=== PATIENT | male | born 1975 | race African-American/Black ===

== ENCOUNTER 2017-01-02 15:15 | Emergency (ER) | payer OTHER ==
[2017-01-02] MEDS ORDERED: Ketorolac Tromethamine 30 MG/ML VIAL ONE (17:23)
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
== END 2017-01-02 18:18 | disposition home or self-care (01) ==
LOC: ERS 15:15
DX: T24.231A Burn of second degree of right lower leg, initial encounter (principal); S80.11XA Contusion of right lower leg, initial encounter; I10 Essential (primary) hypertension; E11.9 Type 2 diabetes mellitus without complications; I25.2 Old myocardial infarction; E78.5 Hyperlipidemia, unspecified; F41.9 Anxiety disorder, unspecified; Z79.82 Long term (current) use of aspirin; Z79.84 Long term (current) use of oral hypoglycemic drugs; Z79.899 Other long term (current) drug therapy; V09.9XXA Pedestrian injured in unspecified transport accident, initial encounter
CPT/HCPCS: 96372; J1885

== ENCOUNTER 2017-01-04 11:55 | Emergency (ER) | payer OTHER ==
[2017-01-04] MEDS ORDERED: Ketorolac Tromethamine 60 MG/2 ML VIAL ONE (13:27)
--- NOTE | 2017-01-04 13:50 | CT ---
CT CERVICAL SPINE WITHOUT CONTRAST: Date: 01/04/17 HISTORY: patient fell and now has post-traumatic pain. COMPARISON: None. TECHNIQUE: Noncontrast cervical spine CT is performed in the axial plane. Reformatted images are submitted for i nterpretation. FINDINGS: Lateral masses of C1 and C2 articulate appropriately. Odontoid process is intact. Appropriate articul ation of the facets. Straightening of normal cervical lordosis may be due to patient positioning, muscle spasm, or cervica l collar. There is no prevertebral soft tissue swelling. No epidural hematoma. There is some stranding of the subcutaneous fat, nonspecific. If there is concern for ligamentous inj ury, consider MRI. Central spinal canal and neural foramina are patent. Evaluation is limited by technique. Upper mediastinum and lung apices are unremarkable. Cervical spine vertebral body height is maintained. No fracture. IMPRESSION: 1. No cervical spine fracture. 2. Soft tissue edema. If there is concern for ligamentous injury, consider MRI. POS: [facility]
--- NOTE | 2017-01-04 14:12 | ULT ---
EXAM: RIGHT LOWER EXTREMITY VENOUS ULTRASOUND WITH DOPPLER: HISTORY: Right leg pain. COMPARISON: None. TECHNIQUE: Esparza scale, color flow, Doppler imaging, and spectral waveform analysis performed of the right lower extremity venous system. FINDINGS: There is compressibility, presence of flow, and augmentation of the common femoral vein, femoral vein , and popliteal vein. There is flow in the greater saphenous vein, profunda vein, and posterior tibi al vein. IMPRESSION: No evidence of thrombus in the right lower extremity venous system. POS: [facility]
== END 2017-01-04 14:35 | disposition home or self-care (01) ==
LOC: ERS 11:55
DX: S13.4XXA Sprain of ligaments of cervical spine, initial encounter (principal); S80.11XA Contusion of right lower leg, initial encounter; T24.201D Burn of second degree of unspecified site of right lower limb, except ankle and foot, subsequent encounter; T31.0 Burns involving less than 10% of body surface; E11.9 Type 2 diabetes mellitus without complications; E78.5 Hyperlipidemia, unspecified; I10 Essential (primary) hypertension; F41.9 Anxiety disorder, unspecified; R56.9 Unspecified convulsions; I25.2 Old myocardial infarction; Z79.899 Other long term (current) drug therapy; Z79.84 Long term (current) use of oral hypoglycemic drugs; Z79.82 Long term (current) use of aspirin; V89.2XXD Person injured in unspecified motor-vehicle accident, traffic, subsequent encounter
CPT/HCPCS: 72125; 96372; J1885

== ENCOUNTER 2017-03-18 13:00 | Emergency (ER) | payer OTHER ==
[2017-03-18] MEDS ORDERED: Lorazepam 2 MG/ML VIAL ONE (13:08)
--- NOTE | 2017-03-18 14:10 | CT ---
CT BRAIN WITHOUT CONTRAST: HISTORY: Seizures. Emergency exam. Altered mental status. COMPARISON: CT brain 08/09/16. FINDINGS: No acute territorial infarct or hemorrhage. No midline shift or mass effect. Ventricular size and e xtraaxial CSF spaces are normal. Calvarium is intact. Paranasal sinuses and the mastoids are clear. Soft tissues are unremarkable. IMPRESSION: No acute intracranial abnormality. No significant change. POS: [facility]
== END 2017-03-18 15:05 | disposition home or self-care (01) ==
LOC: ERS 13:00
DX: R56.9 Unspecified convulsions (principal); I25.2 Old myocardial infarction; E11.9 Type 2 diabetes mellitus without complications; E78.5 Hyperlipidemia, unspecified; I10 Essential (primary) hypertension; F41.9 Anxiety disorder, unspecified
CPT/HCPCS: 70450; J2060

== ENCOUNTER 2017-05-07 02:19 | Emergency (ER) | payer OTHER ==
[2017-05-07] MEDS ORDERED: Ketorolac Tromethamine 30 MG/ML VIAL ONE (02:50)
[2017-05-07 03:28] LABS: #Basophils 0.1 thou/uL (0.0-0.2); #Eosinphils 0.2 thou/uL (0.0-0.7); #Lymphocytes 3.1 thou/uL (1.20-3.40); #Monocytes 0.9 thou/uL (0.11-0.59); #Neutrophils 4.3 thou/uL (1.40-6.50); %Eosinophils 2.3 % (0.0-10.0); %Monocytes 10.9 % (0.0-10.0); %Neutrophils 49.8 % (42.0-75.0); Hemoglobin 17.1 g/dL (14.0-18.0); Mean Corpuscular HGB CONC 32.5 g/dL (32.0-36.0); Mean Corpuscular Hemoglobin 28.6 pg (27.0-31.0); Mean Platelet Volume 7.1 fL (7.4-10.4); Platelet Count 271 thou/uL (130-400); RBC Distribution Width 12.8 % (11.5-14.5); Red Blood Cell (RBC) Count 5.96 mill/uL (4.70-6.10); White Blood Cell (WBC) Count 8.6 thou/uL (4.8-10.8)
[2017-05-07 03:57] LABS: ALT (SGPT) 17 U/L (8-55); AST (SGOT) 29 U/L (5-34); Albumin 4.8 g/dL (3.5-5.0); Alkaline Phosphatase 93 U/L (40-150); Anion Gap 13 mmol/L (10-20); BUN (Urea Nitrogen) 16 mg/dL (8.9-20.6); Bilirubin, Total 0.7 mg/dL (0.2-1.2); Calc. Creatinine Clearance 0 mL/min (70-130); Calcium 10.2 mg/dL (7.8-10.44); Carbon Dioxide 25 mmol/L (22-29); Chloride 102 mmol/L (98-107); Estimated GFR-MDRD 49; Globulin 4.1 g/dL (2.4-3.5); Glucose 97 mg/dL (70-105); Potassium 4.3 mmol/L (3.5-5.1); Protein, Total 8.9 g/dL (6.0-8.3); Sodium 136 mmol/L (136-145)
[2017-05-07] MEDS ORDERED: SODIUM CHLORIDE 0.9% IVP SCH ×2 (04:00)
[2017-05-07] MEDS ORDERED: LIDOCAINE IVP SCH ×2 (04:00)
[2017-05-07 05:39] LABS: Bilirubin Negative (Negative); Blood, Urine Large (Negative); Clarity CLOUDY (Clear); Glucose, Urine (Dipstick) Negative (Negative); Leukocyte Trace (Negative); Nitrite Negative (Negative); Protein, Urine (Dipstick) 30 mg/dL (Neg-Trace); Specific Gravity, Urine 1.027 (1.002-1.036)
[2017-05-07 05:42] LABS: Bacteria/HPF None Seen HPF (None Seen); Hyaline Casts/LPF 0-3 HYALINE CAST LPF (0-3 Hyaline); Pathc Cast-AUWi Flag 0.65 (0-2.49); RBC/HPF GREATER THAN 50-TNTC HPF (0-3); Squamous Epithelial 0-3 HPF (0-3)
--- NOTE | 2017-05-07 08:28 | CT ---
PRELIMINARY REPORT/[facility]/EMERGENCY AFTER HOURS PROCEDURE: EXAM: CT Abdomen and Pelvis Without Intravenous Contrast EXAM DATE/TIME: Exam ordered 05/07/2017 3:26 AM CLINICAL HISTORY: 41 years old, male; Pain; Abdominal pain; Acute; Patient HX: Urgency earlier tonight, believes passed a kidney stone, then left CVA pain. No cp/sob. No abd pain. No trauma. No rashes. No fevers TECHNIQUE: Axial computed tomography images of the abdomen and pelvis without intravenous contrast. Coronal reformatted images were created and reviewed. COMPARISON: No relevant prior studies available. FINDINGS: Lung bases: Unremarkable. No mass. No consolidation. ABDOMEN: Liver: Unremarkable. Gallbladder and bile ducts: Unremarkable. No calcified stones. No ductal dilation. Pancreas: Unremarkable. No ductal dilation. Spleen: Unremarkable. No splenomegaly. Adrenals: Unremarkable. No mass. Kidneys and ureters: 3 mm obstructing stone in the distal left ureter causing mild obstructive uropat hy. Nonobstructive nephrolithiasis right kidney. Small nonobstructing right renal stone. Stomach and bowel: Unremarkable. No obstruction. No mucosal thickening. Appendix: Normal appendix. PELVIS: Bladder: Unremarkable. No stones. Reproductive: Unremarkable as visualized. ABDOMEN and PELVIS: Intraperitoneal space: Unremarkable. No free air. No significant fluid collection. Bones/joints: No acute fracture. No dislocation. Soft tissues: Unremarkable. Vasculature: Unremarkable. No abdominal aortic aneurysm. Lymph nodes: Unremarkable. No enlarged lymph nodes. IMPRESSION: 3 mm obstructing stone in the distal left ureter causing mild obstructive uropathy. Thank you for allowing us to participate in the care of your patient. Dictated and Authenticated by: Jason Rios MD 05/07/2017 4:29 AM Central Time ([place] & [place]) FINAL REPORT CT ABDOMEN AND PELVIS WITHOUT CONTRAST: Date: 05/07/17 FINDINGS/IMPRESSION: I agree with the preliminary report given by Dr. Jason Rios of [facility]. POS: [facility]
== END 2017-05-07 06:28 | disposition home or self-care (01) ==
LOC: ERS 02:19
DX: N20.2 Calculus of kidney with calculus of ureter (principal); I25.2 Old myocardial infarction; E11.9 Type 2 diabetes mellitus without complications; E78.5 Hyperlipidemia, unspecified; I10 Essential (primary) hypertension; F41.9 Anxiety disorder, unspecified
CPT/HCPCS: 74176; 80053; 81001; 85025; 87077; 87086; 96361; 96365; 96375; J1885; J2001; J7050

== ENCOUNTER 2017-05-25 16:29 | Emergency (ER) | payer OTHER ==
[2017-05-25 17:30] LABS: #Basophils 0.1 thou/uL (0.0-0.2); #Lymphocytes 1.8 thou/uL (1.20-3.40); #Monocytes 1.5 thou/uL (0.11-0.59); #Neutrophils 7.2 thou/uL (1.40-6.50); %Basophils 0.7 % (0.0-1.0); %Eosinophils 0.4 % (0.0-10.0); %Lymphocytes 17.3 % (21.0-51.0); %Monocytes 13.9 % (0.0-10.0); %Neutrophils 67.6 % (42.0-75.0); Hemoglobin 15.7 g/dL (14.0-18.0); Mean Corpuscular HGB CONC 32.6 g/dL (32.0-36.0); Mean Corpuscular Hemoglobin 28.5 pg (27.0-31.0); Mean Corpuscular Volume 87.4 fl (80.0-94.0); Mean Platelet Volume 7.2 fL (7.4-10.4); Platelet Count 234 thou/uL (130-400); RBC Distribution Width 12.8 % (11.5-14.5); Red Blood Cell (RBC) Count 5.52 mill/uL (4.70-6.10); White Blood Cell (WBC) Count 10.7 thou/uL (4.8-10.8)
[2017-05-25 17:57] LABS: ALT (SGPT) 20 U/L (8-55); AST (SGOT) 30 U/L (5-34); Albumin 4.2 g/dL (3.5-5.0); Alkaline Phosphatase 86 U/L (40-150); Anion Gap 13 mmol/L (10-20); BUN (Urea Nitrogen) 16 mg/dL (8.9-20.6); Bilirubin, Total 0.8 mg/dL (0.2-1.2); CK (CPK) 835 U/L (30-200); Calc. Creatinine Clearance 0 mL/min (70-130); Calcium 9.2 mg/dL (7.8-10.44); Carbon Dioxide 24 mmol/L (22-29); Chloride 102 mmol/L (98-107); Estimated GFR-MDRD 60; Globulin 3.4 g/dL (2.4-3.5); Glucose 94 mg/dL (70-105); Lipase 83 U/L (8-78); Potassium 3.8 mmol/L (3.5-5.1); Protein, Total 7.6 g/dL (6.0-8.3); Sodium 135 mmol/L (136-145)
[2017-05-25 18:00] LABS: CKMB 1.4 ng/mL (0-6.6); Troponin I 0.016 ng/mL (< 0.028)
[2017-05-25] MEDS ORDERED: Ketorolac Tromethamine 60 MG/2 ML VIAL ONE (18:31)
--- NOTE | 2017-05-25 19:10 | RAD ---
AP VIEW OF THE CHEST: 05/25/17 INDICATION: Chest pain. COMPARISON: 04/24/14. IMPRESSION: Low lung volumes. No acute abnormality. COMMENTS: No consolidation, pleural effusion or pneumothorax is evident. Heart and pulmonary vasculature appear within normal limits. No acute osseous abnormality is evident. POS: [facility]
[2017-05-25] MEDS ORDERED: Nitroglycerin 0.4 MG TAB (25 Tab Bottle) ONE (19:23)
[2017-05-25 20:51] LABS: Troponin I 0.011 ng/mL (< 0.028)
--- NOTE | 2017-07-31 16:22 | EKG ---
Test Reason : Blood Pressure : / mmHG Vent. Rate : 100 BPM Atrial Rate : 100 BPM P-R Int : 142 ms QRS Dur : 082 ms QT Int : 362 ms P-R-T Axes : 044 -02 021 degrees QTc Int : 466 ms Normal sinus rhythm Inferior infarct , age undetermined Abnormal ECG Confirmed by DAGOBERTO LEDEZMA M.D. ([id number]), design editor BROWN FAN ([id number]) on 07/31/2017 4:22:28 PM Referred By: Confirmed By:DAGOBERTO LEDEZMA M.D.
--- NOTE | 2017-07-31 17:11 | EKG ---
Test Reason : Blood Pressure : / mmHG Vent. Rate : 078 BPM Atrial Rate : 078 BPM P-R Int : 158 ms QRS Dur : 088 ms QT Int : 390 ms P-R-T Axes : 049 023 023 degrees QTc Int : 444 ms Normal sinus rhythm No STEMI Normal ECG No changes Confirmed by DARIEN King, DAGOBERTO ([id number]), map editor BROWN FAN ([id number]) on 07/31/2017 5:11:34 PM Referred By: DARIEN Confirmed By:DAGOBERTO LEDEZMA M.D.
== END 2017-05-25 21:52 | disposition left against medical advice (07) ==
LOC: ERS 16:29
DX: R07.89 Other chest pain (principal); M54.2 Cervicalgia; H92.01 Otalgia, right ear; I25.2 Old myocardial infarction; R56.9 Unspecified convulsions; E11.9 Type 2 diabetes mellitus without complications; E78.5 Hyperlipidemia, unspecified; I10 Essential (primary) hypertension; F41.9 Anxiety disorder, unspecified; V03.09XA Pedestrian with other conveyance injured in collision with car, pick-up truck or van in nontraffic accident, initial encounter; Y93.02 Activity, running
CPT/HCPCS: 36415; 71045; 80053; 82553; 83690; 84484; 85025; 93005; J1885

== ENCOUNTER 2017-05-26 08:22 | Emergency (ER) | payer OTHER ==
[2017-05-26] MEDS ORDERED: Ketorolac Tromethamine 30 MG/ML VIAL ONE (09:07)
[2017-05-26 09:11] LABS: #Basophils 0.1 thou/uL (0.0-0.2); #Eosinphils 0.1 thou/uL (0.0-0.7); #Lymphocytes 1.6 thou/uL (1.20-3.40); #Monocytes 1.4 thou/uL (0.11-0.59); #Neutrophils 7.6 thou/uL (1.40-6.50); %Basophils 0.7 % (0.0-1.0); %Eosinophils 0.6 % (0.0-10.0); %Lymphocytes 14.8 % (21.0-51.0); %Monocytes 13.4 % (0.0-10.0); %Neutrophils 70.5 % (42.0-75.0); Hemoglobin 14.8 g/dL (14.0-18.0); Mean Corpuscular HGB CONC 31.2 g/dL (32.0-36.0); Mean Corpuscular Hemoglobin 27.2 pg (27.0-31.0); Mean Corpuscular Volume 87.1 fl (80.0-94.0); Mean Platelet Volume 7.5 fL (7.4-10.4); Platelet Count 230 thou/uL (130-400); RBC Distribution Width 12.7 % (11.5-14.5); Red Blood Cell (RBC) Count 5.45 mill/uL (4.70-6.10); White Blood Cell (WBC) Count 10.8 thou/uL (4.8-10.8)
[2017-05-26 09:31] LABS: ALT (SGPT) 18 U/L (8-55); AST (SGOT) 22 U/L (5-34); Albumin 3.8 g/dL (3.5-5.0); Alkaline Phosphatase 76 U/L (40-150); Anion Gap 10 mmol/L (10-20); BUN (Urea Nitrogen) 16 mg/dL (8.9-20.6); Bilirubin, Total 0.4 mg/dL (0.2-1.2); Calc. Creatinine Clearance 0 mL/min (70-130); Calcium 8.7 mg/dL (7.8-10.44); Carbon Dioxide 25 mmol/L (22-29); Chloride 105 mmol/L (98-107); Estimated GFR-MDRD 63; Glucose 129 mg/dL (70-105); Lipase 27 U/L (8-78); Potassium 3.8 mmol/L (3.5-5.1); Protein, Total 6.8 g/dL (6.0-8.3); Sodium 136 mmol/L (136-145)
[2017-05-26 09:35] LABS: Troponin I 0.021 ng/mL (< 0.028)
[2017-05-26] MEDS ORDERED: ISOVUE-370 76%-LOCM 1 ML ONE (10:45)
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
== END 2017-05-26 11:20 | disposition home or self-care (01) ==
LOC: ERS 08:22
DX: R10.12 Left upper quadrant pain (principal); E78.5 Hyperlipidemia, unspecified; G40.909 Epilepsy, unspecified, not intractable, without status epilepticus; E11.9 Type 2 diabetes mellitus without complications; I10 Essential (primary) hypertension; F41.9 Anxiety disorder, unspecified; Z79.899 Other long term (current) drug therapy; Z79.82 Long term (current) use of aspirin; V49.9XXA Car occupant (driver) (passenger) injured in unspecified traffic accident, initial encounter
CPT/HCPCS: 36415; 71045; 71260; 74177; 80053; 82553; 83690; 84484; 85025; 93005; 96360; 96361; 96372; 96374; J1885

== ENCOUNTER 2017-07-13 17:42 | Observation (INO) | payer OTHER ==
[2017-07-13] MEDS ORDERED: Nitroglycerin 0.4 MG TAB (25 Tab Bottle) ONE (17:53)
--- NOTE | 2017-07-13 19:09 | RAD ---
CHEST ONE VIEW: 07/13/17 COMPARISON: 05/25/17 HISTORY: Chest pain. FINDINGS: Enlarged cardiac silhouette. The pulmonary vessels and hilum are normal. Costophrenic angles are jenna r. No consolidation or mass. No pneumothorax or osseous abnormalities. Chronic changes in the left lo wer lobe are noted. IMPRESSION: No acute cardiopulmonary process. POS: [facility]
[2017-07-13 19:18] LABS: #Basophils 0.1 thou/uL (0.0-0.2); #Eosinphils 0.5 thou/uL (0.0-0.7); #Lymphocytes 3.5 thou/uL (1.20-3.40); #Neutrophils 3.2 thou/uL (1.40-6.50); %Basophils 0.7 % (0.0-1.0); %Lymphocytes 42.3 % (21.0-51.0); %Monocytes 11.6 % (0.0-10.0); %Neutrophils 39.4 % (42.0-75.0); Hemoglobin 14.6 g/dL (14.0-18.0); Mean Corpuscular HGB CONC 31.8 g/dL (32.0-36.0); Mean Corpuscular Hemoglobin 27.6 pg (27.0-31.0); Mean Corpuscular Volume 86.8 fl (80.0-94.0); Mean Platelet Volume 7.2 fL (7.4-10.4); Platelet Count 204 thou/uL (130-400); White Blood Cell (WBC) Count 8.2 thou/uL (4.8-10.8)
[2017-07-13 19:43] LABS: Anion Gap 13 mmol/L (10-20); BUN (Urea Nitrogen) 18 mg/dL (8.9-20.6); Calc. Creatinine Clearance 0 mL/min (70-130); Calcium 9.2 mg/dL (7.8-10.44); Carbon Dioxide 21 mmol/L (22-29); Chloride 104 mmol/L (98-107); Estimated GFR-MDRD 53; Glucose 101 mg/dL (70-105); Potassium 3.9 mmol/L (3.5-5.1); Sodium 134 mmol/L (136-145)
[2017-07-13 19:49] LABS: CKMB 2.1 ng/mL (0-6.6); Troponin I Less than 0.010 ng/mL (< 0.028)
[2017-07-13] MEDS ORDERED: Ketorolac Tromethamine 30 MG/ML VIAL ONE (20:34)
[2017-07-13] MEDS ORDERED: Ondansetron ODT 8 MG TAB ONE (20:46)
[2017-07-13] MEDS ORDERED: Promethazine HCl 25 MG/ML VIAL ONE (20:48)
[2017-07-13] MEDS ORDERED: Ondansetron ODT 4 MG TAB ONE (21:16)
[2017-07-13] MEDS ORDERED: hydrALAZINE 20 MG/ML VIAL ONE (21:21)
--- NOTE | 2017-07-13 21:52 | PDOC.FPRHP ---
- History of Present Illness Chief Complaint: chest pain History of Present Illness: 41 yo M with PMH including UT in 2014 with balloon angioplasty, drug abuse, CKD stage 2, HTN, DM2, HLD, and pseudoseizures comes in with chest pain which started this afternoon. The pain is on the L side of the chest and does not radiate. He is resting comfortable when examiner enters the room. States the pain is currently 3/10 but gets up to 8/10 and lasts for a few minutes sporadically. The pain started today while he was riding with a friend to "get him some ribs." Nothing seems to make the pain better or worse. He states this pain feels similar to the pain he had before getting a heart cath a few years back. Patient states it has been a few years since he used any illicit drugs. ED Course: EKG shows inverted t-wave in V3, no ST changes, no q waves Trop negative - Allergies/Adverse Reactions Allergies Allergy/AdvReac Type Severity Reaction Status Date / Time tramadol Allergy Verified 07/13/17 22:59 - Home Medications Medication Instructions Recorded Confirmed Type Aspirin [Ecotrin Low Strength] 81 mg PO DAILY 05/03/15 07/13/17 History Atorvastatin Calcium 40 mg PO HS 05/03/15 07/13/17 History Carvedilol 3.125 mg PO BID 05/03/15 07/13/17 History Topiramate [Topamax] 100 mg PO BID 05/03/15 07/13/17 History - History PMHx:UT with balloon angioplasty 2014, CKD stage 2, HTN, DM2, HLD, pseudoseizures, Cocaine abuse PSHx: cath 2014, rt knee surgery FHx:father UT in 60s Social:patient denies using drugs in the last year, no recent alcohol use, non- smoker - Review of Systems General: reports: fatigue. denies: fever/chills Eyes: denies: eye pain ENT: denies: nasal congestion, rhinorrhea Respiratory: denies: cough, shortness of breath Cardiovascular: reports: chest pain. denies: palpitation, orthopnea Gastrointestinal: denies: nausea, vomiting, diarrhea Genitourinary: denies: incontinence, dysuria Skin: denies: rashes, itching Musculoskeletal: denies: pain, stiffness Neurological: denies: numbness, weakness Psychological: reports: anxiety. denies: depression - Vital signs BP: 123/83 HR: 75 RR: 18 Tmax: 98.2 Pox: 95 on RA Wt: 95.1kg - Physical Exam Constitutional: NAD, awake, alert and oriented HEENT: normocephalic and atraumatic, PERRLA, EOMI Neck: supple Heart: RRR, normal S1/S2, pulses present, other (chest pain reproducible on palpation) Lungs: CTAB, no respiratory distress, good air movement Abdomen: soft, non-tender, bowel sounds present Musculoskeletal: normal structure, ROM grossly normal Neurological: no focal deficit, CN II-XII intact Skin: no rash/lesions, capillary refill <2 seconds -Psychiatric: Patient states he is anxious during the exam FMR H&P: Results - Labs Result Diagrams: 07/14/17 04:17 07/14/17 04:17 Lab results: WBC 8.2 thou/uL (4.8-10.8) 07/13/17 19:07 Hgb 14.6 g/dL (14.0-18.0) 07/13/17 19:07 Hct 46.0 % (42.0-52.0) 07/13/17 19:07 MCV 86.8 fl (80.0-94.0) 07/13/17 19:07 Plt Count 204 thou/uL (130-400) 07/13/17 19:07 Neutrophils % 39.4 % (42.0-75.0) L 07/13/17 19:07 Sodium 134 mmol/L (136-145) L 07/13/17 19:07 Potassium 3.9 mmol/L (3.5-5.1) 07/13/17 19:07 Chloride 104 mmol/L (98-107) 07/13/17 19:07 Carbon Dioxide 21 mmol/L (22-29) L 07/13/17 19:07 BUN 18 mg/dL (8.9-20.6) 07/13/17 19:07 Creatinine 1.72 mg/dL (0.6-1.3) H 07/13/17 19:07 Glucose 101 mg/dL (70-105) 07/13/17 19:07 Calcium 9.2 mg/dL (7.8-10.44) 07/13/17 19:07 CK-MB (CK-2) 2.1 ng/mL (0-6.6) 07/13/17 19:07 FMR H&P: A/P - Problem List (1) CAD (coronary artery disease) Current Visit: No Status: Acute Code(s): I25.10 - ATHSCL HEART DISEASE OF [place] CORONARY ARTERY W/O ANG PCTRS (2) Chest pain Current Visit: No Status: Acute Code(s): R07.9 - CHEST PAIN, UNSPECIFIED (3) Cocaine abuse Current Visit: No Status: Acute Code(s): F14.10 - COCAINE ABUSE, UNCOMPLICATED (4) Hyperlipemia Current Visit: No Status: Acute Code(s): E78.5 - HYPERLIPIDEMIA, UNSPECIFIED (5) Diabetes mellitus type 2 in nonobese Current Visit: No Status: Chronic Code(s): E11.9 - TYPE 2 DIABETES MELLITUS WITHOUT COMPLICATIONS (6) Dyslipidemia Current Visit: No Status: Chronic Code(s): E78.5 - HYPERLIPIDEMIA, UNSPECIFIED (7) [id number] kidney injury Current Visit: No Status: Resolved Code(s): N17.9 - ACUTE KIDNEY FAILURE, UNSPECIFIED; N18.9 - CHRONIC KIDNEY DISEASE, UNSPECIFIED Qualifiers: Acute renal failure type: unspecified Chronic kidney disease stage: stage 2 (mild) Qualified Code(s): N17.9 - Acute kidney failure, unspecified; N18.2 - Chronic kidney disease, stage 2 (mild); N18.2 - Chronic kidney disease, stage 2 (mild) - Plan # Atypical Chest pain - Hx of cath in 2014 w/ balloon angioplasty - EKG unremarkable - trop neg, trend - UDS + for meth, cocaine, cannaboids - tele monitor overnight - ASA, statin # Substance Abuse - Has note from hospital admin indicating patient is not to receive narcotics - see UDS # CKD 2 - Cr 1.74, was 1.34 in August 2016 - bump likely from substance abuse - monitor # HTN - home meds # DM2 - home meds # HLD - home meds Dispo: likely home tomorrow pending trops and resolution of CP FMR H&P: Upper Level - Pertinent history 41 yo M with PMH significant for polysubstance abuse, CAD, HTN, HLD, DM2 presents with chest pain. Pain began earlier this evening, are central, substernal radiating down left arm. Has some SOB, N/V, and diaphoresis with these episodes. Denies any drug use recently. Had inferolateral UT in 2016, and since then has had multiple ER visits for chest pain, almost never resulting in admission. - Pertinent findings PE: T: P: BP: RR: % Gen: [place] male HEENT: PERRL, EOMI, MMM, no lymphadenopathy or thyromegaly CV: RRR no murmurs, distal pulses intact Pulm: CTAB, no wheezes or rhonchi Abd: soft, NT/ND, BS present, no masses or distention Ext: no cyanosis or edema MSK: MENENDEZ well, no joint or muscle pain or swelling Neuro: CN 2-12 intact, normal sensation Skin: no rashes or lesions Psych: A&O x3, appropriate in conversation - Plan Date/Time: 07/13/17 2152 41 yo M here with CP. 1) Atypical chest pain: Observe on tele. Continue to trend trops, check Mg, Phos, TSH. Repeat EKG overnight. Suspect this is likely due to drug use, will not order stress at this time, though if patient continues to have concerning symptoms will reconsider and risk stratify. 2) Polysubstance abuse: trauma counsellor cessation 3) HTN: continue home medications 4) DM2: continue home medications 5) HLD: continue statin I, [Benigno Wiggins], have evaluated this patient and agree with findings/plan as outlined by programming internship resident. Pertinent changes/additions are listed here. Attending Addendum - Attending Addendum Date/Time: 07/13/17 2200. I personally evaluated the patient and discussed the management with Dr. Wagner/ Feliciano. I agree with the History, Examination, Assessment and Plan documented above with any addition or exceptions noted below. Patient here with 1 day of chest pain that occurred while sitting. Reports he is unsure how long the pain lasted but that it has now resolved. Patient's drug screen is positive for amphetamines, cocaine, and marijuana, though he denies recent abuse. His troponins are negative, and no major EKG indicators of ischemia. Will observe overnight for rule out of his chest pain. Will need counselling on cessation. Consider stress testing if his pain recurs, though his drug use can definitely both stress his heart and result in his pain complaints.
[2017-07-13 22:41] LABS: Cocaine Metabolite Screen Detected (NotDetected); Medtox Reader # READER 1; Phencyclidine (PCP) Not Detected (NotDetected); THC/Cannabinoid Screen Detected (NotDetected)
[2017-07-13 22:42] LABS: Amphetamine Detected (NotDetected); Barbiturates Screen Not Detected (NotDetected); Benzodiazepine Screen Not Detected (NotDetected); Medtox Control Line Valid? VALID (VALID); Methadone Not Detected (NotDetected); Methamphetamine Not Detected (NotDetected); Opiate Screen Not Detected (NotDetected); Oxycodone Screen Not Detected (NotDetected); Tricyclic Screen Not Detected (NotDetected)
[2017-07-13] MEDS ORDERED: Nitroglycerin 0.4 MG TAB (25 Tab Bottle) PO PRN (22:48)
[2017-07-13] MEDS ORDERED: Enoxaparin Sodium 40 MG/0.4 ML SYRINGE SC SCH (22:48)
[2017-07-13] MEDS ORDERED: Ondansetron HCl/PF 4 MG/2 ML Vial IVP PRN (22:48)
[2017-07-13 22:59] LABS: Troponin I Less than 0.010 ng/mL (< 0.028)
[2017-07-14 01:54] LABS: Troponin I Less than 0.010 ng/mL (< 0.028)
[2017-07-14 05:27] LABS: Eosinophils 6 % (0-10); Hemoglobin 14.5 g/dL (14.0-18.0); Lymphocytes 56 % (21-51); MDiff Complete? YES; Mean Corpuscular HGB CONC 31.8 g/dL (32.0-36.0); Mean Corpuscular Hemoglobin 27.3 pg (27.0-31.0); Mean Corpuscular Volume 85.8 fl (80.0-94.0); Mean Platelet Volume 8.5 fL (7.4-10.4); Monocytes 8 % (0-10); Neutrophil 29 % (42-75); PLT Morphology Comment Appears Adequate; Platelet Count 233 thou/uL (130-400); White Blood Cell (WBC) Count 6.4 thou/uL (4.8-10.8)
[2017-07-14 05:28] LABS: Anion Gap 12 mmol/L (10-20); BUN (Urea Nitrogen) 18 mg/dL (8.9-20.6); Calc. Creatinine Clearance 89 mL/min (70-130); Calcium 9.3 mg/dL (7.8-10.44); Carbon Dioxide 25 mmol/L (22-29); Cardiac Risk 4.3 (Less than 4.5); Chloride 104 mmol/L (98-107); Cholesterol 149 mg/dl (< 200 Desired); Estimated GFR-MDRD 65; Glucose 99 mg/dL (70-105); HDL Cholesterol 35 mg/dL (>60 Neg Risk); LDL Cholesterol, Calculated 95 mg/dL; Potassium 3.6 mmol/L (3.5-5.1); Sodium 137 mmol/L (136-145); Triglycerides 97 mg/dL (Less than 150)
[2017-07-14] MEDS: Ondansetron ODT 4 MG TAB PO PRN (06:47)
[2017-07-14] MEDS ORDERED: Aspirin 325 MG TAB PO SCH (09:00)
--- NOTE | 2017-07-14 12:09 | PDOC.FM ---
- Subjective Subjective: No complaint of chest pain this am. - Objective MAR Reviewed: Yes Vital Signs & Weight: Vital Signs (12 hours) Temp Pulse Resp BP BP Pulse Ox 07/14/17 12:04 142/99 H 07/14/17 10:57 98.0 F 72 12 153/105 H 98 07/14/17 07:45 98.2 F 70 18 07/14/17 07:20 98.4 F 73 12 144/95 H 97 07/14/17 04:13 70 18 129/83 Weight Weight 95.118 kg Result Diagrams: 07/14/17 04:17 07/14/17 04:17 <Winifred Juan - Last Filed: 07/14/17 12:11> - Objective Vital Signs & Weight: Vital Signs (12 hours) Temp Pulse Resp BP BP Pulse Ox 07/14/17 19:30 97.9 F 07/14/17 16:03 74 14 142/91 H 95 07/14/17 12:04 142/99 H 07/14/17 10:57 98.0 F 72 12 153/105 H 98 Weight Weight 95.118 kg Result Diagrams: 07/14/17 04:17 07/14/17 04:17 <Edelmira Acevedo - Last Filed: 07/14/17 20:48> Phys Exam - Physical Examination Constitutional: NAD HEENT: PERRLA, moist MMs Neck: no nodes, no JVD Respiratory: no wheezing, no rales, no rhonchi, clear to auscultation bilateral Cardiovascular: RRR, no significant murmur Gastrointestinal: soft, non-tender, no distention Musculoskeletal: no edema, pulses present Neurological: non-focal Psychiatric: normal affect, A&O x 3 Skin: no rash, cap refill <2 seconds <Winifred Juan - Last Filed: 07/14/17 12:11> Dx/Plan (1) Methamphetamine abuse Code(s): F15.10 - OTHER STIMULANT ABUSE, UNCOMPLICATED Status: Acute (2) Cannabis abuse Code(s): F12.10 - CANNABIS ABUSE, UNCOMPLICATED Status: Acute (3) Chest pain Code(s): R07.9 - CHEST PAIN, UNSPECIFIED Status: Acute (4) Cocaine abuse Code(s): F14.10 - COCAINE ABUSE, UNCOMPLICATED Status: Acute (5) Hyperlipemia Code(s): E78.5 - HYPERLIPIDEMIA, UNSPECIFIED Status: Acute (6) Diabetes mellitus type 2 in nonobese Code(s): E11.9 - TYPE 2 DIABETES MELLITUS WITHOUT COMPLICATIONS Status: Chronic (7) Hypertension Code(s): I10 - ESSENTIAL (PRIMARY) HYPERTENSION Status: Chronic QualifierTitle: Hypertension type: essential hypertension Qualified Code( s): I10 - Essential (primary) hypertension - Plan Plan: # Atypical Chest pain - Hx of cath in 2014 w/ balloon angioplasty - EKG with inverted t waves - trop neg X 3 - UDS + for meth, cocaine, cannaboids - tele monitor overnight - stress today - ASA, statin # Substance Abuse - Has note from hospital admin indicating patient is not to receive narcotics - see UDS # CKD 2 - Cr 1.74, was 1.34 in August 2016 - bump likely from substance abuse - monitor # HTN - continue carvedilol after stress test # DM2 - hba1c - sliding scale insulin # HLD - atorvastatin 40mg daily Dispo: likely home today pending stress <Winifred Juan - Last Filed: 07/14/17 12:11> Attending Addendum - Attending Addendum Date/Time: 07/14/172047 I personally evaluated the patient and discussed the management with Dr. Juan. I agree with the History, Examination, Assessment and Plan documented above with any addition or exceptions noted below. Pt somnolent this morning. He will go for stress test. Hx drug abuse. If negative pt will likely d/c home. Further management pending stress results. <Edelmira Acevedo - Last Filed: 07/14/17 20:48>
[2017-07-14] MEDS ORDERED: HumaLOG 300 UNITS/3 ML VIAL SC PRN (12:12)
[2017-07-14] MEDS ORDERED: Dextrose 50% Abboject 50 ML SYRINGE SLOW IVP PRN (12:12)
[2017-07-14] MEDS ORDERED: Dextrose 5% in Water 1,000 ML IV PRN (12:12)
[2017-07-14 12:54] LABS: Hemoglobin A1c 6.2 % (4.0-6.0)
[2017-07-14] MEDS: Topiramate 100 MG TAB PO SCH (20:02)
[2017-07-14] MEDS: Carvedilol 3.125 MG TAB PO SCH (20:02)
[2017-07-14] MEDS: Acetaminophen 325 MG TAB PO PRN (20:02)
[2017-07-14] MEDS ORDERED: Atorvastatin Calcium 40 MG TAB PO SCH (21:00)
[2017-07-15] MEDS ORDERED: Docusate 100 MG CAP PO SCH ×2 (01:00→09:00)
[2017-07-15] MEDS: Acetaminophen 325 MG TAB PO PRN (01:05)
[2017-07-15] MEDS: Ondansetron ODT 4 MG TAB PO PRN (01:07)
--- NOTE | 2017-07-15 06:29 | PDOC.FM ---
- Subjective Subjective: No acute events overnight. Denies chest pain. Endorses pain in left great toe. Denies trauma or hx of gout. - Objective MAR Reviewed: Yes Vital Signs & Weight: Vital Signs (12 hours) Temp Pulse Resp BP BP Pulse Ox 07/15/17 05:35 98.5 F 62 16 125/76 95 07/15/17 03:06 100 07/14/17 23:45 68 15 143/85 H 99 07/14/17 19:30 97.9 F 07/14/17 19:17 97.9 F 68 15 143/98 H 17 L Weight Weight 95.118 kg I&O: 07/13/17 07/14/17 07/15/17 06:59 06:59 06:59 Intake Total 820 Balance 820 Result Diagrams: 07/14/17 04:17 07/15/17 06:35 <Winifred Juan - Last Filed: 07/15/17 09:05> - Objective Vital Signs & Weight: Vital Signs (12 hours) Temp Pulse Resp BP Pulse Ox 07/15/17 13:34 98.4 F 73 16 165/98 H 99 07/15/17 08:00 98.2 F 80 16 147/96 H 95 Weight Weight 95.118 kg I&O: 07/14/17 07/15/17 07/16/17 06:59 06:59 06:59 Intake Total 820 Balance 820 Result Diagrams: 07/14/17 04:17 07/15/17 06:35 <Edelmira Acevedo - Last Filed: 07/15/17 19:36> Phys Exam - Physical Examination Constitutional: NAD HEENT: PERRLA, moist MMs Neck: no nodes, no JVD Respiratory: no wheezing, no rales, clear to auscultation bilateral Cardiovascular: RRR, no significant murmur Gastrointestinal: soft, non-tender, no distention Musculoskeletal: pulses present left great toe swollen, painful to touch Neurological: non-focal, normal sensation Psychiatric: normal affect, A&O x 3 <Winifred Juan - Last Filed: 07/15/17 09:05> Dx/Plan (1) Methamphetamine abuse Code(s): F15.10 - OTHER STIMULANT ABUSE, UNCOMPLICATED Status: Acute (2) Cannabis abuse Code(s): F12.10 - CANNABIS ABUSE, UNCOMPLICATED Status: Acute (3) Chest pain Code(s): R07.9 - CHEST PAIN, UNSPECIFIED Status: Acute (4) Cocaine abuse Code(s): F14.10 - COCAINE ABUSE, UNCOMPLICATED Status: Acute (5) Hyperlipemia Code(s): E78.5 - HYPERLIPIDEMIA, UNSPECIFIED Status: Acute (6) Diabetes mellitus type 2 in nonobese Code(s): E11.9 - TYPE 2 DIABETES MELLITUS WITHOUT COMPLICATIONS Status: Chronic (7) Hypertension Code(s): I10 - ESSENTIAL (PRIMARY) HYPERTENSION Status: Chronic QualifierTitle: Hypertension type: essential hypertension Qualified Code( s): I10 - Essential (primary) hypertension (8) Pain and swelling of toe of left foot Code(s): M79.675 - PAIN IN LEFT TOE(S); M79.89 - OTHER SPECIFIED SOFT TISSUE DISORDERS Status: Acute - Plan Plan: 41 yo man with pmhx of [place] s/p cath with balloon angioplasty in 2014, DMT2, HTN, and HLD presents with chest pain, admitted for atypical chest pain. # Atypical Chest pain - Hx of cath in 2014 w/ balloon angioplasty - EKG with inverted t waves - trop neg X 3 - UDS + for meth, cocaine, cannaboids - tele monitor - pt did not go for a stress yesterday d/t too many patients needing stress tests but will go today - ASA, statin # left great toe pain and swelling -concern for gout, diffusely swollen and tender to touch -not sig. warmer than right toe, no erythema -will check uric acid and consider steroid pack instead of nsaids or colchicine # Substance Abuse - Has note from hospital admin indicating patient is not to receive narcotics - +cocaine, meth, marijuana # CKD 2 - Cr 1.74-->1.44, was 1.34 in August 2016 - repeat bmp this am, will give 500 ml fluid bolus # HTN - continue carvedilol after stress test # DM2 - 6.2 hba1c - sliding scale insulin # HLD - continue atorvastatin 40mg daily # Seizure D/O - continue topiramate 100mg BID Dispo: likely home today pending stress <Winifred Juan - Last Filed: 07/15/17 09:05> Attending Addendum - Attending Addendum Date/Time: 07/15/17 2316 I personally evaluated the patient and discussed the management with Dr. Juan. I agree with the History, Examination, Assessment and Plan documented above with any addition or exceptions noted below. The patient is having a stress test today. If stress is negative he will d/c home. He also has great toe pain, suspect gout. Will check uric acid and XR. Treat with colchicine if stress is negative. <Edelmira Acevedo - Last Filed: 07/15/17 19:36>
[2017-07-15] MEDS ORDERED: Sodium Chloride 0.9% 500 ML IV SCH (06:30)
[2017-07-15 06:53] LABS: Anion Gap 9 mmol/L (10-20); BUN (Urea Nitrogen) 20 mg/dL (8.9-20.6); Calc. Creatinine Clearance 79 mL/min (70-130); Calcium 8.8 mg/dL (7.8-10.44); Carbon Dioxide 24 mmol/L (22-29); Chloride 104 mmol/L (98-107); Estimated GFR-MDRD 56; Glucose 112 mg/dL (70-105); Potassium 3.7 mmol/L (3.5-5.1); Sodium 133 mmol/L (136-145)
[2017-07-15] MEDS: Carvedilol 3.125 MG TAB PO SCH (08:30)
[2017-07-15] MEDS: Topiramate 100 MG TAB PO SCH (08:30)
[2017-07-15] MEDS ORDERED: Aspirin 81 mg Enteric Coated Tablet PO SCH (09:00)
[2017-07-15] MEDS ORDERED: Colchicine 0.6 MG TAB PO SCH ×4 (11:45→21:00)
[2017-07-15] MEDS ORDERED: ADENOSINE 60 MG/20 ML VIAL ONE (12:10)
--- NOTE | 2017-07-15 12:56 | RAD ---
LEFT FOOT 2 VIEWS: HISTORY: Pain and swelling. COMPARISON: None. FINDINGS: There is mild edema throughout the foot. No acute displaced fracture or malalignment. There is a sm all ossicle near the dorsum of the talar neck. A small anterior distal tibial spur. Old injury of the medial hallux sesamoid versus bipartite variant. IMPRESSION: Soft tissue swelling along with osseous degenerative chronic changes. No acute abnormality. POS: [facility]
--- NOTE | 2017-07-15 13:02 | RAD ---
LEFT TOE TWO VIEWS: HISTORY: Toe pain and swelling. COMPARISON: None. FINDINGS: Mild soft tissue swelling along the great toe. No acute displaced fracture or malalignment. Old bip artite medial hallux. No erosions or periostitis. IMPRESSION: Soft tissue swelling. POS: [facility]
--- NOTE | 2017-07-15 13:22 | NM ---
CARDIAC SPECT: HISTORY: A 41-year-old black male with chest pain coronary artery disease, PTCA, hypertension, diabetes, dysli pidemia. TECHNIQUE: A myocardial perfusion scan was performed using a single-isotope 1-day protocol with Technetium 99m s estamibi. Nine mCi were injected intravenously for the rest exam followed 28 mCi for the stress stud y. Pharmacologic stress with adenosine is monitored and interpreted by Derik Carrillo, nurse practitioner. FINDINGS: A fixed defect is seen in the inferolateral wall. No reversible defects re identified. GATED SPECT LVEF: 49%. WALL MOTION EXAM: Mild inferolateral wall hypokinesis. IMPRESSION: 1. No evidence of reversible ischemia. 2. Findings are suggestive of inferolateral wall scar. POS: [facility]
[2017-07-15 13:37] VITALS: BP 165/98; TEMP 98.4
== END 2017-07-15 14:33 | disposition home or self-care (01) ==
LOC: ERS 17:42 → 2SW 20:25
PROVIDERS: ADMIT Student in an Organized Health Care Education/Training Program; ATTEND Student in an Organized Health Care Education/Training Program
DX: R07.89 Other chest pain (principal); I25.10 Atherosclerotic heart disease of native coronary artery without angina pectoris; F14.10 Cocaine abuse, uncomplicated; F15.10 Other stimulant abuse, uncomplicated; F12.10 Cannabis abuse, uncomplicated; I25.2 Old myocardial infarction; E78.5 Hyperlipidemia, unspecified; N17.9 Acute kidney failure, unspecified; E11.22 Type 2 diabetes mellitus with diabetic chronic kidney disease; I12.9 Hypertensive chronic kidney disease with stage 1 through stage 4 chronic kidney disease, or unspecified chronic kidney disease; N18.2 Chronic kidney disease, stage 2 (mild); M79.675 Pain in left toe(s); Z79.899 Other long term (current) drug therapy; Z79.82 Long term (current) use of aspirin
CPT/HCPCS: 36415; 36416; 71045; 78452; 80048; 80061; 80306; 82553; 83036; 84484; 84550; 85025; 93005; 93017; 94760; 96361; 96372; 96374; 96375; A9500; G0378; J0153; J0360; J1650; J1885; J2550; Q0162

== ENCOUNTER 2017-08-07 20:15 | Emergency (ER) | payer OTHER ==
[2017-08-07 20:39] LABS: #Basophils 0.1 thou/uL (0.0-0.2); #Eosinphils 0.5 thou/uL (0.0-0.7); #Lymphocytes 4.1 thou/uL (1.20-3.40); #Neutrophils 4.2 thou/uL (1.40-6.50); %Basophils 1.2 % (0.0-1.0); %Eosinophils 4.7 % (0.0-10.0); %Lymphocytes 41.4 % (21.0-51.0); %Neutrophils 42.7 % (42.0-75.0); Hemoglobin 14.3 g/dL (14.0-18.0); Mean Corpuscular HGB CONC 33.2 g/dL (32.0-36.0); Mean Corpuscular Hemoglobin 28.3 pg (27.0-31.0); Mean Corpuscular Volume 85.3 fL (78.0-98.0); Mean Platelet Volume 7.4 fL (7.4-10.4); Platelet Count 260 thou/uL (130-400); Red Blood Cell (RBC) Count 5.04 mill/uL (4.70-6.10)
--- NOTE | 2017-08-07 20:52 | RAD ---
CHEST ONE VIEW: 08/07/17 HISTORY: Patient passed out without any pulse. COMPARISON: 07/13/17 FINDINGS: Normal cardiac silhouette. Slightly diminished lung volumes. No consolidation or mass. No pneumothora x or osseous abnormalities. IMPRESSION: No acute cardiopulmonary process. POS: [facility]
[2017-08-07 20:57] LABS: ALT (SGPT) 20 U/L (8-55); AST (SGOT) 36 U/L (5-34); Albumin 4.2 g/dL (3.5-5.0); Alkaline Phosphatase 99 U/L (40-150); Anion Gap 15 mmol/L (10-20); BUN (Urea Nitrogen) 18 mg/dL (8.9-20.6); Bilirubin, Total 0.5 mg/dL (0.2-1.2); CK (CPK) 1157 U/L (30-200); Calc. Creatinine Clearance 0 mL/min (70-130); Calcium 9.5 mg/dL (7.8-10.44); Carbon Dioxide 23 mmol/L (22-29); Chloride 103 mmol/L (98-107); Estimated GFR-MDRD 49; Globulin 3.9 g/dL (2.4-3.5); Glucose 121 mg/dL (70-105); Protein, Total 8.1 g/dL (6.0-8.3); Sodium 137 mmol/L (136-145)
[2017-08-07 21:01] LABS: Troponin I 0.012 ng/mL (< 0.028)
[2017-08-07] MEDS ORDERED: Ketorolac Tromethamine 30 MG/ML VIAL ONE (21:12)
== END 2017-08-07 22:42 | disposition home or self-care (01) ==
LOC: ERS 20:15
DX: E86.0 Dehydration (principal); M62.82 Rhabdomyolysis; I25.2 Old myocardial infarction; E78.5 Hyperlipidemia, unspecified; I10 Essential (primary) hypertension; F41.9 Anxiety disorder, unspecified; Z79.899 Other long term (current) drug therapy; Z79.891 Long term (current) use of opiate analgesic; Z79.82 Long term (current) use of aspirin
CPT/HCPCS: 71045; 80053; 82553; 84484; 85025; 93005; 94760; 96360; 96374; J1885

== ENCOUNTER 2017-10-17 12:43 | Emergency (ER) | payer OTHER | END 2017-10-17 13:11 | disposition home or self-care (01) | LOC: ERS 12:43 | DX: R19.7 Diarrhea, unspecified (principal); I25.2 Old myocardial infarction; E11.9 Type 2 diabetes mellitus without complications; E78.5 Hyperlipidemia, unspecified; I10 Essential (primary) hypertension; F41.9 Anxiety disorder, unspecified; Z79.899 Other long term (current) drug therapy; Z79.82 Long term (current) use of aspirin | CPT/HCPCS: 99283 ==

== ENCOUNTER 2018-02-01 10:35 | Emergency (ER) | payer OTHER ==
[2018-02-01 11:03] LABS: #Basophils 0.1 thou/uL (0.0-0.2); #Eosinphils 0.2 thou/uL (0.0-0.7); #Lymphocytes 2.8 thou/uL (1.20-3.40); #Monocytes 0.7 thou/uL (0.11-0.59); #Neutrophils 2.6 thou/uL (1.40-6.50); %Eosinophils 3.1 % (0.0-10.0); %Lymphocytes 44.4 % (21.0-51.0); %Monocytes 11.5 % (0.0-10.0); %Neutrophils 40.1 % (42.0-75.0); Hemoglobin 15.1 g/dL (14.0-18.0); Mean Corpuscular HGB CONC 31.3 g/dL (32.0-36.0); Mean Corpuscular Hemoglobin 27.5 pg (27.0-31.0); Mean Corpuscular Volume 87.8 fL (78.0-98.0); Mean Platelet Volume 7.6 fL (7.4-10.4); Platelet Count 249 thou/uL (130-400); RBC Distribution Width 12.8 % (11.5-14.5); Red Blood Cell (RBC) Count 5.48 mill/uL (4.70-6.10); White Blood Cell (WBC) Count 6.4 thou/uL (4.8-10.8)
[2018-02-01] MEDS ORDERED: Aspirin 325 MG TAB ONE (11:04)
[2018-02-01] MEDS ORDERED: Nitroglycerin 0.4 MG TAB (25 Tab Bottle) ONE (11:04)
[2018-02-01] MEDS ORDERED: Ketorolac Tromethamine 30 MG/ML VIAL ONE (11:04)
--- NOTE | 2018-02-01 11:21 | RAD ---
PORTABLE CHEST 1 VIEW: Date: 02/01/18 Time: 1057 hours HISTORY: Chest pain. FINDINGS: Comparison made with exam of 08/07/17. The heart size is normal. The lungs are expanded without focal areas of consolidation, pneumothoraces , or pleural effusions. IMPRESSION: No acute process. POS: [facility]
[2018-02-01 11:24] LABS: ALT (SGPT) 21 U/L (8-55); AST (SGOT) 25 U/L (5-34); Alkaline Phosphatase 80 U/L (40-150); Anion Gap 12 mmol/L (10-20); BUN (Urea Nitrogen) 15 mg/dL (8.9-20.6); Bilirubin, Total 0.8 mg/dL (0.2-1.2); Calc. Creatinine Clearance 0 mL/min (70-130); Calcium 9.6 mg/dL (7.8-10.44); Carbon Dioxide 19 mmol/L (22-29); Chloride 111 mmol/L (98-107); Estimated GFR-MDRD 58; Globulin 3.5 g/dL (2.4-3.5); Glucose 102 mg/dL (70-105); Protein, Total 7.5 g/dL (6.0-8.3); Sodium 138 mmol/L (136-145)
[2018-02-01 14:13] LABS: Troponin I Less than 0.010 ng/mL (< 0.028)
--- NOTE | 2018-02-05 17:22 | EKG ---
Test Reason : CP Blood Pressure : / mmHG Vent. Rate : 077 BPM Atrial Rate : 077 BPM P-R Int : 156 ms QRS Dur : 082 ms QT Int : 362 ms P-R-T Axes : 042 007 004 degrees QTc Int : 409 ms Normal sinus rhythm Normal ECG Confirmed by MILA KEARNS ([id number]), editor magazine BROWN FAN ([id number]) on 02/05/2018 5:21:55 PM Referred By: Confirmed By:MILA KEARNS
== END 2018-02-01 14:53 | disposition home or self-care (01) ==
LOC: ERS 10:35
DX: R07.9 Chest pain, unspecified (principal); I25.2 Old myocardial infarction; E11.9 Type 2 diabetes mellitus without complications; E78.5 Hyperlipidemia, unspecified; I10 Essential (primary) hypertension; F41.9 Anxiety disorder, unspecified; Z79.899 Other long term (current) drug therapy; Z79.82 Long term (current) use of aspirin
CPT/HCPCS: 36415; 71045; 80053; 84484; 85025; 93005; 96374; J1885

== ENCOUNTER 2018-02-21 18:17 | Emergency (ER) | payer OTHER ==
[2018-02-21 19:01] LABS: #Basophils 0.1 thou/uL (0.0-0.2); #Eosinphils 0.3 thou/uL (0.0-0.7); #Lymphocytes 3.3 thou/uL (1.20-3.40); #Monocytes 1.2 thou/uL (0.11-0.59); #Neutrophils 5.3 thou/uL (1.40-6.50); %Basophils 0.6 % (0.0-1.0); %Eosinophils 3.3 % (0.0-10.0); %Lymphocytes 32.5 % (21.0-51.0); %Monocytes 11.6 % (0.0-10.0); Hemoglobin 14.2 g/dL (14.0-18.0); Mean Corpuscular HGB CONC 32.1 g/dL (32.0-36.0); Mean Corpuscular Hemoglobin 27.8 pg (27.0-31.0); Mean Corpuscular Volume 86.5 fL (78.0-98.0); Mean Platelet Volume 7.8 fL (7.4-10.4); Platelet Count 259 thou/uL (130-400); RBC Distribution Width 12.6 % (11.5-14.5); White Blood Cell (WBC) Count 10.2 thou/uL (4.8-10.8)
[2018-02-21 19:15] LABS: ALT (SGPT) 24 U/L (8-55); AST (SGOT) 31 U/L (5-34); Albumin 4.2 g/dL (3.5-5.0); Alkaline Phosphatase 82 U/L (40-150); Anion Gap 15 mmol/L (10-20); BUN (Urea Nitrogen) 20 mg/dL (8.9-20.6); Bilirubin, Total 0.5 mg/dL (0.2-1.2); CK (CPK) 749 U/L (30-200); Calc. Creatinine Clearance 0 mL/min (70-130); Calcium 9.2 mg/dL (7.8-10.44); Carbon Dioxide 22 mmol/L (22-29); Chloride 107 mmol/L (98-107); Estimated GFR-MDRD 55; Globulin 2.8 g/dL (2.4-3.5); Glucose 103 mg/dL (70-105); Lipase 37 U/L (8-78); Potassium 4.1 mmol/L (3.5-5.1); Sodium 140 mmol/L (136-145)
--- NOTE | 2018-02-21 19:34 | RAD ---
RADIOGRAPH CHEST 1 VIEW: HISTORY: A 42-year-old male with chest pain. FINDINGS: There are no air space densities, pulmonary edema, pneumothorax, or cardiomegaly. The lateral costop hrenic angles are sharp. IMPRESSION: No acute cardiopulmonary findings. jn [] POS: [facility]
== END 2018-02-21 19:53 | disposition left against medical advice (07) ==
LOC: ERS 18:17
DX: R07.9 Chest pain, unspecified (principal); E11.9 Type 2 diabetes mellitus without complications; I25.2 Old myocardial infarction; I10 Essential (primary) hypertension; E78.5 Hyperlipidemia, unspecified; Z79.899 Other long term (current) drug therapy
CPT/HCPCS: 36415; 71045; 80053; 82550; 83690; 84484; 85025; 93005; 94760

== ENCOUNTER 2018-06-07 17:29 | Emergency (ER) | payer OTHER ==
--- NOTE | 2018-06-07 18:09 | RAD ---
CHEST ONE VIEW: 06/07/18 HISTORY: Chest pain. COMPARISON: 02/21/18. FINDINGS: Heart size is normal. The lungs are clear. IMPRESSION: No acute intrathoracic disease. Stable from prior study. POS: [facility]
[2018-06-07 18:13] LABS: #Basophils 0.1 thou/uL (0.0-0.2); #Eosinphils 0.3 thou/uL (0.0-0.7); #Lymphocytes 3.2 thou/uL (1.20-3.40); #Monocytes 0.8 thou/uL (0.11-0.59); #Neutrophils 4.2 thou/uL (1.40-6.50); %Basophils 0.7 % (0.0-1.0); %Eosinophils 3.1 % (0.0-10.0); %Lymphocytes 37.6 % (21.0-51.0); %Monocytes 9.4 % (0.0-10.0); %Neutrophils 49.2 % (42.0-75.0); Hemoglobin 14.2 g/dL (14.0-18.0); Mean Corpuscular HGB CONC 31.2 g/dL (32.0-36.0); Mean Corpuscular Hemoglobin 27.1 pg (27.0-31.0); Mean Corpuscular Volume 86.8 fL (78.0-98.0); Mean Platelet Volume 7.8 fL (7.4-10.4); Platelet Count 257 thou/uL (130-400); RBC Distribution Width 12.7 % (11.5-14.5); Red Blood Cell (RBC) Count 5.24 mill/uL (4.70-6.10); White Blood Cell (WBC) Count 8.6 thou/uL (4.8-10.8)
[2018-06-07 18:40] LABS: ALT (SGPT) 17 U/L (8-55); AST (SGOT) 22 U/L (5-34); Albumin 4.2 g/dL (3.5-5.0); Alkaline Phosphatase 89 U/L (40-150); Anion Gap 14 mmol/L (10-20); BUN (Urea Nitrogen) 18 mg/dL (8.9-20.6); Bilirubin, Total 0.5 mg/dL (0.2-1.2); CK (CPK) 586 U/L (30-200); Calc. Creatinine Clearance 0 mL/min (70-130); Calcium 9.4 mg/dL (7.8-10.44); Carbon Dioxide 25 mmol/L (22-29); Chloride 104 mmol/L (98-107); Estimated GFR-MDRD 56; Globulin 2.9 g/dL (2.4-3.5); Glucose 141 mg/dL (70-105); Lipase 36 U/L (8-78); Potassium 3.8 mmol/L (3.5-5.1); Protein, Total 7.1 g/dL (6.0-8.3); Sodium 139 mmol/L (136-145)
== END 2018-06-07 19:32 | disposition left against medical advice (07) ==
LOC: ERS 17:29
DX: Z53.21 Procedure and treatment not carried out due to patient leaving prior to being seen by health care provider (principal)
CPT/HCPCS: 36415; 71045; 80053; 82550; 83690; 84484; 85025; 93005

== ENCOUNTER 2018-08-09 14:18 | Emergency (ER) | payer OTHER ==
[2018-08-09 14:53] LABS: #Basophils 0.1 thou/uL (0.0-0.2); #Eosinphils 0.3 thou/uL (0.0-0.7); #Lymphocytes 2.7 thou/uL (1.20-3.40); #Monocytes 0.7 thou/uL (0.11-0.59); #Neutrophils 3.4 thou/uL (1.40-6.50); %Basophils 1.3 % (0.0-1.0); %Eosinophils 3.9 % (0.0-10.0); %Lymphocytes 37.8 % (21.0-51.0); %Monocytes 9.2 % (0.0-10.0); %Neutrophils 47.9 % (42.0-75.0); Hemoglobin 13.8 g/dL (14.0-18.0); Mean Corpuscular HGB CONC 31.7 g/dL (32.0-36.0); Mean Corpuscular Volume 88.3 fL (78.0-98.0); Mean Platelet Volume 7.6 fL (7.4-10.4); Platelet Count 211 thou/uL (130-400); RBC Distribution Width 12.4 % (11.5-14.5); Red Blood Cell (RBC) Count 4.91 mill/uL (4.70-6.10); White Blood Cell (WBC) Count 7.1 thou/uL (4.8-10.8)
[2018-08-09 15:17] LABS: ALT (SGPT) 47 U/L (8-55); AST (SGOT) 34 U/L (5-34); Albumin 4.2 g/dL (3.5-5.0); Alkaline Phosphatase 93 U/L (40-150); Anion Gap 12 mmol/L (10-20); BUN (Urea Nitrogen) 19 mg/dL (8.9-20.6); Bilirubin, Total 0.4 mg/dL (0.2-1.2); CK (CPK) 481 U/L (30-200); Calc. Creatinine Clearance 0 mL/min (70-130); Calcium 9.1 mg/dL (7.8-10.44); Carbon Dioxide 22 mmol/L (22-29); Chloride 105 mmol/L (98-107); Estimated GFR-MDRD 76; Globulin 2.9 g/dL (2.4-3.5); Glucose 160 mg/dL (70-105); Lipase 34 U/L (8-78); Protein, Total 7.1 g/dL (6.0-8.3); Sodium 135 mmol/L (136-145)
--- NOTE | 2018-08-09 15:20 | RAD ---
Exam: Chest one view HISTORY:Chest pain Comparison: 06/07/2018 FINDINGS: Cardiac silhouette:Upper normal heart size Aorta: Slight elongation of the aorta. Pulmonary vessels: Normal Costophrenic angles: Clear LUNGS: No masses or consolidation. Pneumothorax: None Osseous abnormalities: None IMPRESSION: No acute cardiopulmonary process.
[2018-08-09] MEDS ORDERED: Ketorolac Tromethamine 60 MG/2 ML VIAL ONE (15:30)
== END 2018-08-09 15:33 | disposition home or self-care (01) ==
LOC: ERS 14:18
DX: R07.9 Chest pain, unspecified (principal); I25.2 Old myocardial infarction; E11.9 Type 2 diabetes mellitus without complications; E78.5 Hyperlipidemia, unspecified; I10 Essential (primary) hypertension; F41.9 Anxiety disorder, unspecified; Z79.82 Long term (current) use of aspirin; Z79.899 Other long term (current) drug therapy
CPT/HCPCS: 36415; 71045; 80053; 82550; 83690; 84484; 85025; 93005; 96372; J1885

== ENCOUNTER 2018-09-17 00:52 | Emergency (ER) | payer OTHER ==
[2018-09-17] MEDS ORDERED: Ketorolac Tromethamine 30 MG/ML VIAL ONE (01:08)
--- NOTE | 2018-09-17 07:49 | RAD ---
EXAM: 3 views of the left foot HISTORY: Foot pain COMPARISON: None FINDINGS: 3 views of the left foot shows no evidence of acute fracture or dislocation. No soft tissue swelling is seen. No degenerative changes are present. IMPRESSION: No evidence of acute osseous abnormality.
== END 2018-09-17 01:51 | disposition home or self-care (01) ==
LOC: ERS 00:52
DX: S90.32XA Contusion of left foot, initial encounter (principal); I25.2 Old myocardial infarction; E11.9 Type 2 diabetes mellitus without complications; E78.5 Hyperlipidemia, unspecified; I10 Essential (primary) hypertension; F41.9 Anxiety disorder, unspecified; F17.210 Nicotine dependence, cigarettes, uncomplicated; Z79.899 Other long term (current) drug therapy; Z79.82 Long term (current) use of aspirin; W20.8XXA Other cause of strike by thrown, projected or falling object, initial encounter
CPT/HCPCS: 96372; J1885

== ENCOUNTER 2018-09-27 17:49 | Inpatient (IN) | payer OTHER ==
[~2018-09-27 17:49] MED LIST: ISOVUE-370 76%-LOCM 1 ML ONE
--- NOTE | 2018-09-27 18:23 | RAD ---
Portable frontal chest radiograph: 09/27/2018 COMPARISON: 08/27/2018 HISTORY: Seizure, possible aspiration FINDINGS: Lungs are clear. Heart and mediastinal contours appear within normal limits. IMPRESSION: No acute findings.
[2018-09-27 18:49] LABS: Hemoglobin 14.8 g/dL (14.0-18.0); Mean Corpuscular HGB CONC 32.9 g/dL (32.0-36.0); Mean Corpuscular Hemoglobin 28.6 pg (27.0-31.0); Mean Corpuscular Volume 86.8 fL (78.0-98.0); Mean Platelet Volume 7.8 fL (7.4-10.4); Platelet Count 235 thou/uL (130-400); RBC Distribution Width 12.4 % (11.5-14.5); Red Blood Cell (RBC) Count 5.19 mill/uL (4.70-6.10); White Blood Cell (WBC) Count 6.5 thou/uL (4.8-10.8)
[2018-09-27 18:57] LABS: ALT (SGPT) 54 U/L (8-55); AST (SGOT) 124 U/L (5-34); Albumin 4.2 g/dL (3.5-5.0); Alkaline Phosphatase 96 U/L (40-150); Anion Gap 14 mmol/L (10-20); BUN (Urea Nitrogen) 18 mg/dL (8.9-20.6); Bilirubin, Total 0.6 mg/dL (0.2-1.2); Calc. Creatinine Clearance 0 mL/min (70-130); Calcium 8.8 mg/dL (7.8-10.44); Carbon Dioxide 21 mmol/L (22-29); Chloride 105 mmol/L (98-107); Estimated GFR-MDRD 84; Globulin 3.1 g/dL (2.4-3.5); Glucose 115 mg/dL (70-105); Potassium 3.6 mmol/L (3.5-5.1); Protein, Total 7.3 g/dL (6.0-8.3); Sodium 136 mmol/L (136-145)
[2018-09-27 19:13] LABS: Band 2 % (5-11); Eosinophils 3 % (0-10); Lymphocytes 35 % (21-51); MDiff Complete? YES; Monocytes 13 % (0-10); Neutrophil 44 % (42-75); Platelet Morphology Comment Appears Adequate; Polychromasia SLIGHT = 2-3 cells (100X) (0-2/hpf); Reactive Lymphocytes 3 % (0-10)
[2018-09-27 19:28] LABS: CK (CPK) 8921 U/L (30-200)
[2018-09-27] MEDS ORDERED: levETIRAcetam 500 MG/100 ML PREMIX BAG ONE ×2 (21:51→22:06)
[2018-09-27] MEDS ORDERED: Lorazepam 2 MG/ML VIAL ONE (21:53)
[2018-09-27] MEDS ORDERED: Loperamide HCl 2 MG CAP PO PRN ×2 (22:47)
[2018-09-27] MEDS ORDERED: Ondansetron ODT 4 MG TAB PO PRN (22:47)
[2018-09-27 22:49] LABS: Amphetamine Not Detected (NotDetected); Barbiturates Screen Not Detected (NotDetected); Benzodiazepine Screen Not Detected (NotDetected); Cocaine Metabolite Screen Detected (NotDetected); Medtox Control Line Valid? VALID (VALID); Medtox Reader # READER 1; Methadone Not Detected (NotDetected); Methamphetamine Not Detected (NotDetected); Opiate Screen Not Detected (NotDetected); Oxycodone Screen Not Detected (NotDetected); Phencyclidine (PCP) Not Detected (NotDetected); THC/Cannabinoid Screen Not Detected (NotDetected); Tricyclic Screen Not Detected (NotDetected)
--- NOTE | 2018-09-27 23:55 | CT ---
CT angiogram of the head CT angiogram of the neck: 09/27/2018 COMPARISON: None HISTORY: Seizure TECHNIQUE: Axial CT imaging at 5 mm intervals from vertex through skull base without contrast. Then, axial CT imaging at 1.25 mm intervals from lung apices through vertex without IV contrast using CT angiogram protocol with coronal and sagittal 3-D reformatted imaging FINDINGS: Noncontrast enhanced head CT demonstrates no intracranial hemorrhage, midline shift, or mas s effect. The imaged paranasal sinuses/mastoid air cells are well aerated. No displaced calvarial fracture. Imaged lung apices are unremarkable. Secondary to timing of the contrast bolus, arterial opacification within the neck is suboptimal. The origin of the innominate artery, left common carotid artery, and left subclavian artery appear grossly unremarkable. Origin of the right subclavian and right common carotid artery appear grossly u nremarkable as well. Bilateral vertebral arteries appear patent. The left vertebral artery is dominant with a diffusely hy poplastic right vertebral artery noted. On the basis of NASCET criteria, there is no hemodynamically significant stenosis involving the inter nal carotid artery or the common carotid artery on either side. Detailed assessment of the carotid arterial vasculature is limited on the basis of suboptimal contrast opacification. There is mild athe rosclerotic calcification involving the distal right common carotid artery. The basilar artery is patent. Branches of the basilar artery appear patent as well. The M1 segment and the A1 segment appear patent bilaterally. MCA bifurcation as well as distal CHACHA an d MCA branches appear unremarkable bilaterally. No central arterial occlusion or saccular aneurysm is evident. Review of osseous structures demonstrates degenerative change at the atlantoaxial intersp tatum. No worrisome lytic or blastic bone lesion. IMPRESSION: Grossly unremarkable CT angiogram of the head and neck.
[2018-09-28 00:52] VITALS: BMI 37.6
[2018-09-28] MEDS: Lactated Ringer's 1,000 ML IV SCH ×3 (02:09→17:20)
--- NOTE | 2018-09-28 03:34 | PDOC.FPRHP ---
- History of Present Illness Chief Complaint: Seizure History of Present Illness: Pt is a 42 yo M with history of seizures, heart attack, HLD, and HTN who presents after recent seizure. The patient said he woke up this morning with soreness down the whole left side of his body. He said his arm was exquisitely sore and he had difficulty moving it when he first woke up. He said he went about his day, but around 3 pm he went to eat [place] food with his girlfriend. There he said he felt like he could not hardly stand, because his left leg felt like it was giving when he tried to stand up. [facility]. While he was there, he began to seize. He was given Ativan and sent over via EMS to the ER. While in route, they said he vomited on himself and stopped breathing for 3 minutes. Once he arrived, he was A&Ox1 and did not recall the events after he got to the stand alone ER. ED Course: In the ER, Labs were drawn. His troponin was negative. He had a CPK of 8291 and AST 124. Chest xray was normal. He began seizing in the ER again, so Ativan was given as well as a loading dose of Keppra. A UDS drug screen was positive for cocaine. - Allergies/Adverse Reactions Allergies Allergy/AdvReac Type Severity Reaction Status Date / Time tramadol Allergy Verified 07/13/17 22:59 - Home Medications Medication Instructions Recorded Confirmed Type Aspirin [Ecotrin Low Strength] 81 mg PO DAILY 05/03/15 09/28/18 History Atorvastatin Calcium 40 mg PO HS 05/03/15 09/28/18 History Carvedilol 6.25 mg PO BID 05/03/15 09/28/18 History Topiramate [Topamax] 100 mg PO BID 05/03/15 09/28/18 History - History PMHx: HTN, HLD, Hx of CHRISTOPHER, and Seizure PSHx: Cath, R knee FHx: GF: Seizures Aunt,Uncle, and Cousin: DM Social: No tobacco. Drinks occasionally. Recreational drugs only at parties. He said he had marijuana last week at a libertarian. - Review of Systems General: reports: fatigue. denies: fever/chills Eyes: denies: vision changes ENT: denies: rhinorrhea Respiratory: denies: cough, shortness of breath Cardiovascular: reports: chest pain. denies: edema Gastrointestinal: reports: nausea. denies: vomiting, diarrhea, abdominal pain Genitourinary: denies: dysuria Skin: denies: rashes, itching Musculoskeletal: denies: pain Neurological: reports: numbness, weakness - Vital signs BP: 155/111 HR: 75 RR: 16 Tmax: 97.9 Pox: 97% on RA Wt: 113 kg - Physical Exam Constitutional: NAD HEENT: normocephalic and atraumatic, PERRLA, EOMI, normal nasal mucosa, oropharynx clear Neck: supple Chest: other -Chest: Tender to palpation over left side of chest. Heart: RRR, normal S1/S2, no murmurs/rubs/gallops Lungs: CTAB, good air movement Abdomen: soft, non-tender, bowel sounds present Musculoskeletal: normal structure, ROM grossly normal Neurological: no focal deficit, CN II-XII intact -Neurological: A&Ox1 Skin: no rash/lesions Heme/Lymphatic: no unusual bruising or bleeding Psychiatric: normal mood and affect FMR H&P: Results - Labs Result Diagrams: 09/27/18 18:28 09/28/18 03:39 Lab results: WBC 6.5 thou/uL (4.8-10.8) 09/27/18 18:28 Hgb 14.8 g/dL (14.0-18.0) 09/27/18 18:28 Hct 45.1 % (42.0-52.0) 09/27/18 18:28 MCV 86.8 fL (78.0-98.0) 09/27/18 18:28 Plt Count 235 thou/uL (130-400) 09/27/18 18:28 Band Neuts % (Manual) 2 % (5-11) L 09/27/18 18:28 Sodium 136 mmol/L (136-145) 09/27/18 18:28 Potassium 3.6 mmol/L (3.5-5.1) 09/27/18 18:28 Chloride 105 mmol/L (98-107) 09/27/18 18:28 Carbon Dioxide 21 mmol/L (22-29) L 09/27/18 18:28 BUN 18 mg/dL (8.9-20.6) 09/27/18 18:28 Creatinine 1.15 mg/dL (0.7-1.3) 09/27/18 18:28 Glucose 115 mg/dL (70-105) H 09/27/18 18:28 Calcium 8.8 mg/dL (7.8-10.44) 09/27/18 18:28 Total Bilirubin 0.6 mg/dL (0.2-1.2) 09/27/18 18:28 AST 124 U/L (5-34) H 09/27/18 18:28 ALT 54 U/L (8-55) 09/27/18 18:28 Alkaline Phosphatase 96 U/L (40-150) 09/27/18 18:28 Creatine Kinase 8921 U/L (30-200) H 09/27/18 18:28 Serum Total Protein 7.3 g/dL (6.0-8.3) 09/27/18 18:28 Albumin 4.2 g/dL (3.5-5.0) 09/27/18 18:28 FMR H&P: A/P - Problem List (1) Seizure disorder Current Visit: No Status: Chronic Code(s): G40.909 - EPILEPSY, UNSP, NOT INTRACTABLE, WITHOUT STATUS EPILEPTICUS (2) Rhabdomyolysis Current Visit: Yes Status: Acute Code(s): M62.82 - RHABDOMYOLYSIS Qualifiers: Rhabdomyolysis type: non-traumatic Qualified Code(s): M62.82 - Rhabdomyolysis (3) Chest pain Current Visit: No Status: Acute Code(s): R07.9 - CHEST PAIN, UNSPECIFIED Qualifiers: Chest pain type: other chest pain Qualified Code(s): R07.89 - Other chest pain; R07.8 - Other chest pain - Plan Pt is a 42 yo M with history of seizures, heart attack, HLD, and HTN who presents after recent seizure. 1. Seizure Had 2 witnessed seizures. 1 @ outside ER, other here in ER * Given loading dose of Keppra * Ativan given * Will keep on Seizure precautions and monitor * UDS: + cocaine * CTA of Head & Neck: Neg * CT in outside ER: Neg 2. Rhabdomyolysis CPK: 8291 * He was given 2L in ER * LR 200 cc/h * Will monitor CPK and check CMP for kidney function and AST monitoring 3. Chest Pain Hx of CHRISTOPHER year and half ago * Will Trend Troponins Condition: Stable Peripheral: Lines DVT PPX: Lovenox Code Status: Full Diet: NPO until swallow eval Dispo: Obs, pt LOS > 2 days. FMR H&P: Upper Level - Pertinent history 42 yo M w/ PMH of seizure disorder, drug abuse, cad, htn presents via ems for seizure activity. Pt was post ictal on exam and most of the history was obtained from ER provider and existing records. He was reportedly feeling strange this am with left sided facial numbness and has not much recollection after that. He was seen in outside ER and had a ct brain w/o that was negative for acute intracranial process. In the ed pt had another seizure and was given 2mg lorazepam and loaded with keppra 1500mg IV. His virtals were stable. UDS was positive for cocaine. - Pertinent findings ROS: As above PE: Gen: Confused, tearful, appears post ictal HEENT: NCAT, PERRLA EOMI CV: RRR No MRG Resp: Ctabl no wrr Abd: Soft NTND bsx4 Neuro: CN2-12 intact mild left sided weakness UR however, pt reports pain as reason for deficit. Altered sensation left face and UE Extremities: No clubbing cyanosis edema. Moving all - Plan Date/Time: 09/28/18 6701 IRoel DO, have evaluated this patient and agree with findings/ plan as outlined by internet technology manager resident. Pertinent changes/additions are listed here. 1) Seizure - s/p 2mg ativan and laoding dose of keppra - monitor on stroke - am neuro consult - possibly 2/2 cocaine abuse - cta negative 2) Rhabdo: CPK elevated - IVF hydration and monitor IsOs - trend daily cpk - possibly related to seizure vs cocaine abuse - trend CMP 3) Transaminitis: - isolated, likely related to rhabdo mm source - trend 4) Cocaine abuse: - christian counselor on cessation, possible trigger of seizure Dispo: Stable, admit stroke obs for neuro checks and cardica monitoring. Addendum - Attending - Attending Attestation Date/Time: 09/28/18 7428 I personally evaluated the patient and discussed the management with Dr. Paige and Nelson. I agree with the History, Examination, Assessment and Plan documented above with any addition or exceptions noted below. Patient still post ictal on my evaluation 09/27, but HDS. Moving all four extremities. 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 Has not been sleeping (new baby), but she says he is taking his medications as rx'd. Admit for med adjustment, potential neuro consultation, and management of rhabdo.
[2018-09-28 04:21] LABS: ALT (SGPT) 48 U/L (8-55); AST (SGOT) 111 U/L (5-34); Albumin 3.6 g/dL (3.5-5.0); Alkaline Phosphatase 82 U/L (40-150); Anion Gap 12 mmol/L (10-20); BUN (Urea Nitrogen) 13 mg/dL (8.9-20.6); Bilirubin, Total 0.6 mg/dL (0.2-1.2); Calc. Creatinine Clearance 136 mL/min (70-130); Calcium 8.3 mg/dL (7.8-10.44); Carbon Dioxide 19 mmol/L (22-29); Chloride 108 mmol/L (98-107); Estimated GFR-MDRD Greater than 90; Globulin 2.8 g/dL (2.4-3.5); Glucose 102 mg/dL (70-105); Potassium 4.1 mmol/L (3.5-5.1); Protein, Total 6.4 g/dL (6.0-8.3); Sodium 135 mmol/L (136-145)
[2018-09-28 04:35] LABS: CK (CPK) 7448 U/L (30-200)
--- NOTE | 2018-09-28 05:27 | PDOC.FM ---
- Subjective Subjective: Patient seen lying in bed this morning. He states he still feels like he is "in a daze" and somewhat confused. He is aware he is in the hospital and remembers being told he had a seizure, however he does not recall having multiple seizure episodes over past 24 hours. He additionally complains of a headache, sore muscles all over. Says he feels somewhat numb on left face & arm. He states he only takes Topamax as a home seizure medication. Hx of seizures in his grandfather. Patient does admit to using cocaine at a constitution party "over a week ago". - Objective Vital Signs & Weight: Vital Signs (12 hours) Temp Pulse Resp BP Pulse Ox 09/28/18 04:00 97.9 F 67 18 141/88 H 98 09/27/18 23:49 97.5 F L 70 16 162/104 H 97 Weight Weight 105.823 kg Result Diagrams: 09/27/18 18:28 09/28/18 03:39 Phys Exam - Physical Examination Constitutional: NAD HEENT: moist MMs, sclera anicteric Neck: no JVD, supple, full ROM Respiratory: no wheezing, no rhonchi, clear to auscultation bilateral Cardiovascular: RRR, no significant murmur Gastrointestinal: soft, non-tender, positive bowel sounds Musculoskeletal: no edema, pulses present Strength 4/5 on left upper & lower extremeties. 5/5 on right. 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 Neurological: normal sensation, moves all 4 limbs Numbness on left face Psychiatric: normal affect Deviation from normal: Alert, oriented to person & place, questionable about time. Skin: no rash, normal turgor Dx/Plan (1) Rhabdomyolysis Code(s): M62.82 - RHABDOMYOLYSIS Status: Acute Qualifiers: Rhabdomyolysis type: non-traumatic Qualified Code(s): M62.82 - Rhabdomyolysis (2) Cocaine abuse Code(s): F14.10 - COCAINE ABUSE, UNCOMPLICATED Status: Acute (3) Seizure disorder Code(s): G40.909 - EPILEPSY, UNSP, NOT INTRACTABLE, WITHOUT STATUS EPILEPTICUS Status: Chronic (4) Chest pain Code(s): R07.9 - CHEST PAIN, UNSPECIFIED Status: Acute Qualifiers: Chest pain type: other chest pain Qualified Code(s): R07.89 - Other chest pain; R07.8 - Other chest pain (5) Hyperlipemia Code(s): E78.5 - HYPERLIPIDEMIA, UNSPECIFIED Status: Acute Qualifiers: Hyperlipidemia type: unspecified Qualified Code(s): E78.5 - Hyperlipidemia , unspecified (6) Hypertension Code(s): I10 - ESSENTIAL (PRIMARY) HYPERTENSION Status: Chronic Qualifiers: Hypertension type: essential hypertension Qualified Code(s): I10 - Essential (primary) hypertension - Plan Plan: Pt is a 42 yo M with history of seizures, heart attack, HLD, and HTN who presents after recent seizure. 1. Seizure -Had 2 witnessed seizures. 1 @ outside ER, 1 here in ER -Given loading dose of Keppra, continue at 500mg BID on floor -Ativan given in ED, will continue to give prn on floor -Will keep on Seizure precautions and monitor -UDS: + cocaine -CTA of Head & Neck: Neg -CT in outside ER: Neg -Continue home Topamax 100mg BID -concern for possible TIA/CVA due to residual remaining left side weakness and sensory changes, will order MRI Brain W/O contrast & Echo for further workup -check A1C, Lipid Panel, TSH today 2. Rhabdomyolysis -CPK: 8291->7448; AST 124->111 -given 2L NS in ER -LR @ 200 cc/h -Will monitor CPK and check CMP for kidney function and AST monitoring 3. Chest Pain -Hx of CHRISTOPHER year and half ago -Will Trend Troponins 4. Cocaine Abuse -UDS positive for cocaine -patient states he uses occasionally at social events 5. Hypertension -continue home med Carvedilol 6. Hyperlipidemia -continue home med Atorvastatin Condition: Stable Peripheral: Lines DVT PPX: SCDs, Lovenox Code Status: Full Diet: Heart Healthy Dispo: Obs, pt LOS <3 days. Addendum - Attending - Attending Attestation Date/Time: 09/28/18 1050 I personally evaluated the patient and discussed the management with Dr. Barrera. I agree with the History, Examination, Assessment and Plan documented above with any addition or exceptions noted below.
[2018-09-28] MEDS ORDERED: Carvedilol 3.125 MG TAB PO SCH (09:00)
[2018-09-28] MEDS ORDERED: Prevnar 13-Val Conj/PF 0.5 ML SYRINGE IM ONE (09:00)
[2018-09-28] MEDS: levETIRAcetam 500 MG TAB PO SCH ×2 (09:18→20:41)
[2018-09-28] MEDS: Aspirin 81 mg Enteric Coated Tablet PO SCH (09:18)
[2018-09-28] MEDS: Topiramate 100 MG TAB PO SCH ×2 (09:18→20:40)
[2018-09-28] MEDS: Acetaminophen 325 MG TAB PO PRN ×2 (09:18→20:41)
[2018-09-28] MEDS: Carvedilol 6.25 MG TAB PO SCH ×2 (09:19→20:40)
[2018-09-28] MEDS: Famotidine 20 MG TAB PO SCH ×2 (09:19→20:40)
[2018-09-28] MEDS ORDERED: Enoxaparin Sodium 40 MG/0.4 ML SYRINGE SC SCH (10:45)
[2018-09-28] MEDS: Lorazepam 2 MG/ML VIAL SLOW IVP PRN (11:25)
--- NOTE | 2018-09-28 13:08 | MRI ---
Exam: Brain MRI without contrast HISTORY: Stroke like symptoms, left-sided COMPARISON: None FINDINGS: Despite medication, there is motion degradation on multiple sequences Calvarial marrow signal intensity: Appropriate T1 signal Gradient echo sequence: No hemorrhage Brain parenchyma: No mass, mass effect or midline shift. Brain volume, age-appropriate. Cortical adkins-white matter differentiation: Preserved Restricted diffusion: Central arterial flow voids are maintained. Absent restricted diffusion White matter signal intensities: T2, FLAIR white matter hyperintensities due to chronic small vessel ischemic changes Sinuses: Adequate aeration of the paranasal sinuses and mastoid air cells. IMPRESSION: Absent restricted diffusion. No acute infarct.
[2018-09-28 13:40] LABS: Hemoglobin A1c 6.1 % (4.0-6.0)
[2018-09-28 14:06] LABS: Cardiac Risk 4.8 (Less than 4.5)
[2018-09-28] MEDS: Atorvastatin Calcium 40 MG TAB PO SCH (20:40)
[2018-09-29 01:02] LABS: Troponin I Less than 0.010 ng/mL (< 0.028)
[2018-09-29 04:28] LABS: ALT (SGPT) 48 U/L (8-55); AST (SGOT) 120 U/L (5-34); Albumin 3.7 g/dL (3.5-5.0); Alkaline Phosphatase 86 U/L (40-150); Anion Gap 13 mmol/L (10-20); BUN (Urea Nitrogen) 15 mg/dL (8.9-20.6); Bilirubin, Total 0.3 mg/dL (0.2-1.2); Calc. Creatinine Clearance 111 mL/min (70-130); Calcium 9.4 mg/dL (7.8-10.44); Carbon Dioxide 21 mmol/L (22-29); Chloride 108 mmol/L (98-107); Estimated GFR-MDRD 75; Globulin 2.9 g/dL (2.4-3.5); Glucose 127 mg/dL (70-105); Potassium 3.7 mmol/L (3.5-5.1); Protein, Total 6.6 g/dL (6.0-8.3); Sodium 138 mmol/L (136-145)
[2018-09-29 04:31] LABS: Troponin I 0.018 ng/mL (< 0.028)
[2018-09-29 04:41] LABS: CK (CPK) 7332 U/L (30-200)
--- NOTE | 2018-09-29 05:40 | PDOC.FM ---
- Subjective Subjective: Patient had possible seizure again last night at 2026, witnessed by nursing staff. Lasted about 1.5 min, patient lost consciousness and was shaking, and patient able to respond quickly after seizure-like activity ended. Later in the night patient attempted to leave the hospital, stating that he had multiple family and relationship problems he needed to take care of. Patient was convinced to stay due to risk of leaving after another possible seizure. Early this morning patient experienced chest pain. EKG was negative, troponins were initially negative then trended up. This morning patient denies any complaints. He states he had a "rough night" but does not recall having a seizure although he does remember being told he had had one by nurse and family members. - Objective MAR Reviewed: Yes Vital Signs & Weight: Vital Signs (12 hours) Temp Pulse Resp BP BP Pulse Ox 09/29/18 04:00 98 F 72 18 120/84 98 09/29/18 00:00 98.3 F 75 18 156/102 H 96 09/28/18 20:40 155/103 H 09/28/18 20:00 98.2 F 76 16 155/103 H 97 Weight Admit Weight 105.823 kg Weight 105.823 kg I&O: 09/27/18 09/28/18 09/29/18 06:59 06:59 06:59 Intake Total 620 3210 Output Total 500 3615 Balance 120 -405 Result Diagrams: 09/27/18 18:28 09/29/18 04:00 Phys Exam - Physical Examination Constitutional: NAD HEENT: moist MMs, sclera anicteric Neck: no JVD, supple, full ROM Respiratory: no wheezing, no rhonchi, clear to auscultation bilateral Cardiovascular: RRR, no significant murmur Gastrointestinal: soft, non-tender, positive bowel sounds Musculoskeletal: no edema, pulses present slightly weaker on left side compared to right, better than yesterday Neurological: non-focal, normal sensation, moves all 4 limbs Psychiatric: normal affect, A&O x 3 Skin: no rash, normal turgor Dx/Plan (1) Rhabdomyolysis Code(s): M62.82 - RHABDOMYOLYSIS Status: Acute Qualifiers: Rhabdomyolysis type: non-traumatic Qualified Code(s): M62.82 - Rhabdomyolysis (2) Cocaine abuse Code(s): F14.10 - COCAINE ABUSE, UNCOMPLICATED Status: Acute (3) Seizure disorder Code(s): G40.909 - EPILEPSY, UNSP, NOT INTRACTABLE, WITHOUT STATUS EPILEPTICUS Status: Chronic (4) Chest pain Code(s): R07.9 - CHEST PAIN, UNSPECIFIED Status: Acute Qualifiers: Chest pain type: other chest pain Qualified Code(s): R07.89 - Other chest pain; R07.8 - Other chest pain (5) Hyperlipemia Code(s): E78.5 - HYPERLIPIDEMIA, UNSPECIFIED Status: Acute Qualifiers: Hyperlipidemia type: unspecified Qualified Code(s): E78.5 - Hyperlipidemia , unspecified (6) Hypertension Code(s): I10 - ESSENTIAL (PRIMARY) HYPERTENSION Status: Chronic Qualifiers: Hypertension type: essential hypertension Qualified Code(s): I10 - Essential (primary) hypertension - Plan Plan: Pt is a 42 yo M with history of seizures, heart attack, HLD, and HTN who presents after recent seizure. 1. Seizure -Had 3 witnessed seizures. 1 @ outside ER (09/27), 1 here in ER (09/27), 1 on floor (09/28) -Given loading dose of Keppra 1500 mg @ 2200 on 09/27, continue at 500mg BID on floor starting 09/28, increased to 1000mg BID on 09/29 due to breakthrough seizure overnight -Ativan given in ED, will continue to give prn on floor -Will keep on Seizure precautions and monitor -UDS: + cocaine -CTA of Head & Neck: Neg -CT in outside ER: Neg -Continue home Topamax 100mg BID -concern for possible TIA/CVA due to residual remaining left side weakness and sensory changes, will order MRI Brain W/O contrast & Echo for further workup -MRI: chronic small vessel ischemic changes -A1C 6.1%, Lipid Panel: Triglycerides 173 -Neurology consult--emmett Titus 2. Rhabdomyolysis -CPK: 8291->7448 -> 7332; AST 124->111->120 -given 2L NS in ER -LR @ 200 cc/h -Will monitor CPK and check CMP for kidney function and AST monitoring 3. Chest Pain -Hx of CHRISTOPHER year and half ago -Troponin neg x 2 4. Cocaine Abuse -UDS positive for cocaine -patient states he uses occasionally at social events 5. Hypertension -continue home med Carvedilol, increased from 6.25 to 12.5 on 09/29 6. Hyperlipidemia -continue home med Atorvastatin Condition: Stable Peripheral: Lines DVT PPX: SCDs, Lovenox Code Status: Full Diet: Heart Healthy Dispo: Admitted to obs on telemetry. Await further recs from Dr. Titus later today. Anticipated LOS <2 days. Addendum - Attending - Attending Attestation Date/Time: 09/29/18 7070 I personally evaluated the patient and discussed the management with Dr. Jacinto. I agree with the History, Examination, Assessment and Plan documented above with any addition or exceptions noted below. Patient later developed status epilepticus. See my separate note.
[2018-09-29] MEDS: Lactated Ringer's 1,000 ML IV SCH ×5 (05:50→20:47)
[2018-09-29 07:03] LABS: Troponin I Less than 0.010 ng/mL (< 0.028)
[2018-09-29] MEDS: Aspirin 81 mg Enteric Coated Tablet PO SCH (09:11)
[2018-09-29] MEDS: Enoxaparin Sodium 40 MG/0.4 ML SYRINGE SC SCH (09:11)
[2018-09-29] MEDS: Topiramate 100 MG TAB PO SCH (09:11)
[2018-09-29] MEDS: Famotidine 20 MG TAB PO SCH ×2 (09:11→20:46)
[2018-09-29] MEDS: levETIRAcetam 500 MG TAB PO SCH ×2 (09:11→20:43)
[2018-09-29] MEDS: Carvedilol 6.25 MG TAB PO SCH ×2 (09:12→20:47)
[2018-09-29] MEDS ORDERED: levETIRAcetam 500 MG TAB PO SCH ×2 (09:20→21:00)
[2018-09-29] MEDS: Lorazepam 2 MG/ML VIAL SLOW IVP PRN ×4 (12:55→13:24)
[2018-09-29] MEDS ORDERED: Divalproex Sodium DR 500 MG TAB PO SCH ×2 (13:15→21:00)
[2018-09-29] MEDS ORDERED: Midazolam HCl 5 mg/ml Vial IM SCH (13:45)
[2018-09-29] MEDS ORDERED: SODIUM CHLORIDE 0.9% IVPB SCH (14:00)
[2018-09-29] MEDS ORDERED: FOSPHENYTOIN SODIUM IVPB SCH (14:00)
--- NOTE | 2018-09-29 14:07 | PDOC.FM ---
- Objective Vital Signs & Weight: Vital Signs (12 hours) Temp Pulse Resp BP BP Pulse Ox 09/29/18 11:54 98.2 F 73 12 135/92 H 98 09/29/18 09:12 138/91 H 09/29/18 07:55 98.4 F 66 14 138/91 H 98 09/29/18 04:00 98 F 72 18 120/84 98 Weight Admit Weight 105.823 kg Weight 105.823 kg I&O: 09/28/18 09/29/18 09/30/18 06:59 06:59 06:59 Intake Total 620 5664 120 Output Total 500 4515 1020 Balance 120 1149 -900 Result Diagrams: 09/27/18 18:28 09/29/18 04:00 Dx/Plan (1) Rhabdomyolysis Code(s): M62.82 - RHABDOMYOLYSIS Status: Acute Qualifiers: Rhabdomyolysis type: non-traumatic Qualified Code(s): M62.82 - Rhabdomyolysis (2) Cocaine abuse Code(s): F14.10 - COCAINE ABUSE, UNCOMPLICATED Status: Acute (3) Seizure disorder Code(s): G40.909 - EPILEPSY, UNSP, NOT INTRACTABLE, WITHOUT STATUS EPILEPTICUS Status: Chronic (4) Chest pain Code(s): R07.9 - CHEST PAIN, UNSPECIFIED Status: Acute Qualifiers: Chest pain type: other chest pain Qualified Code(s): R07.89 - Other chest pain; R07.8 - Other chest pain (5) Hyperlipemia Code(s): E78.5 - HYPERLIPIDEMIA, UNSPECIFIED Status: Acute Qualifiers: Hyperlipidemia type: unspecified Qualified Code(s): E78.5 - Hyperlipidemia , unspecified (6) Hypertension Code(s): I10 - ESSENTIAL (PRIMARY) HYPERTENSION Status: Chronic Qualifiers: Hypertension type: essential hypertension Qualified Code(s): I10 - Essential (primary) hypertension Addendum - Attending - Attending Attestation Date/Time: 09/29/18 [id number] I rounded Mr Gray about 12:30 ad he was sitting in bed and contemplating leaving against medical advice. We discussed his diagnoses and care plan. he seemed more inclined to stay thereafter. As I walking past his room a few minutes later he called out to me and said he felt bad all over and was having severe chest pain. he then slowly laid back and became unresponsive. He began having diffuse muslce twitching and muscle extension and flexion. 4 mg ativan was given IM since there was no IV access. Several minutes later he became alert and was aksing for his baby. Then he became unresponsive and had more muscle jerking with ext/flexion musle activity. All throughout the nursing team was attempting to acquire IV access. He recieved 2 more IM doses of ativan 4mg for a total of 12mg. Status epilepticus diagnosed. Chirsto lindsey called. IV access x1 achieved adn pt moved to CCU. At our arrival to the CCU he became aware and conversant. Will stablish 2nd IV access and treat with phenytoin. Dr Worrell in consult, for which we are grateful. There is some question of whether this is true seizure due to patients minimal post-ictal state. EKG at time of seizure revealed no new ischemic changes. Patietn is stable now. Will monitor in the CCU as indicated.
--- NOTE | 2018-09-29 15:11 | PDOC.EVN ---
Event Note - Event Note Event Note: Christo Bender Called on 09/29 at ~1330 for seizure like activity. Upon arrival at the room, pt was found be unresponsive and appeared to be seizing. Patient had previously been treated with ativan for multiple seizures today. During this event pt was apparently not responding to benzos. Unfortunately, prior to seizing he was planning to leave [place] ands his IV'd had been removed and no access. Significant time was devoted to establishing peripheral access while a CVC was planned. Patient eventually stopped seizing as access was established. Initial plan was to treat with propofol and possibly intubate, however upon transfer to ICU patient was responsive and seizures had stopped. CMP and CBC were drawn and pt was loaded with Dilantin.
--- NOTE | 2018-09-29 17:56 | CON ---
DATE OF CONSULTATION: 09/29/2018 SERVICE: Pulmonary Medicine. REASON FOR CONSULTATION: ICU patient. HISTORY OF PRESENT ILLNESS: The patient is a 42-year-old male with past medical history significant for uninvestigated seizure disorder. Apparently, he is not on any medications. He had a seizure out of the hospital on the . He presented to the emergency department, and was subsequently admitted. He was doing well on the floor and was being considered for discharge when he started having a seizure that lasted about 45 minutes in total. Initially, he was going to go to the IMCU, but was subsequently switched to the ICU. When he arrived here, his seizures are stopped. Within about 4 or 5 minutes, he is actually speaking and following some simple commands. He denies any shortness of breath, nausea, vomiting, diarrhea, or chest discomfort. Otherwise, there has been no interval change to his condition. He is keeping his eyes closed on purpose, and has a curious grin on his face. PAST MEDICAL HISTORY: 1. Seizure? 2. Migraine headaches. 3. Dyslipidemia. 4. Hypertension. PAST SURGICAL HISTORY: 1. Cardiac catheterization. 2. Right knee surgery. SOCIAL HISTORY: Negative for tobacco or illicit drug use outside of marijuana. He drinks alcohol occasionally. He does not drink to excess. FAMILY HISTORY: Noncontributory. ALLERGIES: TRAMADOL. MEDICATIONS: List of the patient's inpatient medications were reviewed. No specific updates were made at this time. REVIEW OF SYSTEMS: General; head, ears, eyes, nose, and throat; cardiovascular; respiratory; GI; ; musculoskeletal; neurologic; and skin is negative except as mentioned in the HPI. PHYSICAL EXAMINATION: VITAL SIGNS: Afebrile, pulse 73, blood pressure 135/92, respirations 12, and saturation 98% on room air. GENERAL: The patient is a touch somnolent, but perfectly oriented, and following all commands. HEENT: Normocephalic and atraumatic. Sclerae white. Conjunctivae pink. Oral mucosa is moist without lesions. LUNGS: Decent air entry. There is no prolonged expiratory phase. There is actually no rhonchi or wheezing. HEART: Normal rate. Regular. ABDOMEN: Soft, nontender, and nondistended. Bowel sounds are positive. MUSCULOSKELETAL: No cyanosis or clubbing. No pitting in the bilateral lower extremities. NEUROLOGIC: Grossly nonfocal. LABORATORY DATA: WBC 6.5, hemoglobin 14.8, and platelets 235,000. Basic metabolic profile and liver function studies are essentially unremarkable other than a CK of 7000, which was previously downtrending. Troponin is negative x3. Prolactin was 31, which was slightly elevated. TSH 1.08. Glucose 98. Cocaine was positive on the urine drug screen. Keppra level was 9.5. IMAGING STUDIES: MRI of the brain demonstrates absent restricted diffusion with no infarct. This is consistent with chronic small-vessel ischemic changes. ASSESSMENT: 1. Seizure disorder. 2. Pseudoseizure, possible. 3. Polysubstance drug abuse with cocaine and marijuana. 4. Elevated CK. DISCUSSION AND PLAN: The patient is doing fine from respiratory standpoint. It would be reasonable for him to stay in the ICU for one night under close observation. If he does not have any seizure activity until tomorrow, he can be considered for transition back to the floor. Pulmonary/Critical Care will continue to follow along while he remains in this location. If the CK does not come back down to normal, he will need investigation into inflammatory muscle conditions. 70 minutes have been devoted to this patient in various activities. I personally reviewed all imaging studies and laboratory data noted within this document. For fifty percent of this time, I was interacting with the patient at the bedside or coordinating care with the care team. For the remainder of the time I was immediately available to the patient in the hospital unit. Job ID: [id number] MTDD
[2018-09-29] MEDS: Atorvastatin Calcium 40 MG TAB PO SCH (20:46)
--- NOTE | 2018-09-30 01:24 | CON ---
DATE OF CONSULTATION: 09/29/2018 CONSULTING PHYSICIAN: Hospitalist Services. IMPRESSION: 1. Recurrent seizures. 2. Complex medical regimen for his seizures, which does not appear appropriate. PLAN: 1. Discontinue Topamax and Depakote. 2. Continue Keppra 1500 mg twice daily. 3. Continue Dilantin 200 mg twice daily. 4. Dilantin level in the morning. 5. Monitor clinical course. HISTORY OF PRESENT ILLNESS: Mr. Gray is a 42-year-old man with a past history of seizures. He was saw Dr. Hanson a few years ago. It is not clear, if he has had any followup. He apparently came in after having some witnessed generalized tonoclonic seizures. There is some question of some postictal left-sided weakness. He was sent for an MRI of the brain, which was normal. His CT angiogram was also unremarkable. His CK was over 7000. His tox screen was positive for cocaine. He has been moved from the Neuro Unit to the ICU due to some recurrent seizure activity. His is not available to answer any questions. He is really unable to give me any clear answers to his history. PAST MEDICAL HISTORY: Hypertension, coronary disease, seizures. ALLERGIES: TRAMADOL. SOCIAL HISTORY: Positive for drug use. FAMILY HISTORY: Not obtainable. REVIEW OF SYSTEMS: Otherwise not obtainable at this point due to his lethargy. PHYSICAL EXAMINATION: VITAL SIGNS: Blood pressure 150/130, pulse 76, respirations 12, saturations 100%. HEENT: Pupils are equal, conjunctivae clear. Oropharynx clear. CRANIUM: Normocephalic and atraumatic. NECK: Supple. EXTREMITIES: No cyanosis or edema. NEUROLOGIC: He is lethargic secondary to medication. His speech was quiet and fluent. Face appears to be symmetric. He is moving his extremities symmetrically. He reports symmetric sensation to touch. No abnormal movements were seen. Gait was not testable. IMAGING: EKG shows sinus rhythm. SUMMARY: A middle-aged man with a history of seizures with multiple events necessitating admission to the ICU, make these adjustments in his regimen with the hope of stabilizing the situation. Job ID: [id number]
[2018-09-30] MEDS: Lactated Ringer's 1,000 ML IV SCH ×3 (03:05→12:28)
[2018-09-30] MEDS: Lorazepam 2 MG/ML VIAL SLOW IVP PRN (05:01)
[2018-09-30 06:29] LABS: ALT (SGPT) 52 U/L (8-55); AST (SGOT) 116 U/L (5-34); Alkaline Phosphatase 92 U/L (40-150); Anion Gap 13 mmol/L (10-20); BUN (Urea Nitrogen) 15 mg/dL (8.9-20.6); Bilirubin, Total 0.6 mg/dL (0.2-1.2); Calc. Creatinine Clearance 99 mL/min (70-130); Calcium 9.3 mg/dL (7.8-10.44); Carbon Dioxide 21 mmol/L (22-29); Chloride 106 mmol/L (98-107); Estimated GFR-MDRD 66; Glucose 89 mg/dL (70-105); Potassium 4.1 mmol/L (3.5-5.1); Sodium 136 mmol/L (136-145)
[2018-09-30 06:41] LABS: CK (CPK) 5965 U/L (30-200)
--- NOTE | 2018-09-30 09:12 | PRG ---
DATE OF SERVICE: 09/30/2018 SERVICE: Pulmonary Medicine. INTERVAL HISTORY: The patient is doing really well from respiratory standpoint. Breathing comfortably. No complaints of chest discomfort, nausea, or vomiting. He had multiple seizure events overnight. This started around 4 o'clock this morning. He has no specific complaints, otherwise. He is actually awake immediately following his seizure, talking to his significant other. PHYSICAL EXAMINATION: VITAL SIGNS: Afebrile, pulse 67, blood pressure 110/75, respirations 13, and saturation 96% on room air. GENERAL: The patient is awake and alert, in no apparent distress. LUNGS: Good air entry with no prolonged expiratory phase or wheezing present. HEART: Normal rate, regular. ABDOMEN: Soft, nontender, and nondistended. Bowel sounds are positive. MUSCULOSKELETAL: No cyanosis or clubbing. No pitting in bilateral lower extremities. NEUROLOGIC: Grossly nonfocal. LABORATORY DATA: Basic metabolic profile is unremarkable. Creatinine 1.42 and gently up-trending. AST 116, alkaline phosphatase 92. CK continues to improve. Troponin is negative x1. CRP is unremarkable. Liver function studies are negative. Procalcitonin continues to trend downward. His most recent one followed these last two seizures. Cocaine is positive in urine drug screen. Keppra and phenytoin levels have been drawn. IMAGING DATA: Echocardiogram demonstrates normal ejection fraction with 2/3 diastolic dysfunction. ASSESSMENT: 1. Seizure disorder. 2. Pseudo-seizure, possibly superimposed on true seizures. 3. Polysubstance drug abuse with cocaine and marijuana. 4. Elevated CK. DISCUSSION AND PLAN: It is curious that the patient is having ongoing seizure activity, but his prolactin level, and CK continued to trend downward. I think it would be reasonable to perform an EEG and see if we can stimulate a seizure to see if there are any epileptiform discharges on this study. We can delay transitioning the patient to the floor. I would like to keep him n.p.o. until he has been seizure-free for a period of time just in case intubation will be required. Job ID: [id number]
[2018-09-30] MEDS: levETIRAcetam 500 MG TAB PO SCH (10:07)
[2018-09-30] MEDS: Famotidine 20 MG TAB PO SCH (10:14)
[2018-09-30] MEDS: Aspirin 81 mg Enteric Coated Tablet PO SCH (10:14)
[2018-09-30] MEDS: Enoxaparin Sodium 40 MG/0.4 ML SYRINGE SC SCH (10:15)
[2018-09-30] MEDS: Carvedilol 6.25 MG TAB PO SCH (10:15)
--- NOTE | 2018-09-30 11:43 | PDOC.FM ---
- Subjective Subjective: Yesterday patient became very agitated and attempted to leave AMA at 1100. I went to talk with him about risks of leaving against medical advice and potential of having another seizure and he decided to stay. At approx. 1245 patient became agitated again and requested to leave AMA to take his daughter to a doctor's appointment. At this point the patient was seen by Dr. Monsalve to eap counselor against leaving and during that time he had another seizure and entered status epilepticus that lasted about 45 minutes. Patient was transferred to ICU with intention to intubate when he stopped seizing. Overnight the patient had a seizure at approx 0400 and again at 0515. The seizure at 0515 was described as patient's eyes rolling back into his head, shaking, and nonresponsive, lasted approximately 2 min. Patient was then not responsive to pain stimulation for about 5 min after the seizure. Upon entering the room this morning patient is asleep in bed. He responds to sternal rub only and claims to not remember what happened in the prior 24 hours. He denies that he is having seizures, but admits that people do tell him he does have seizures. Exam limited due to patient's cooperation and altered mental state. - Objective Vital Signs & Weight: Vital Signs (12 hours) Temp BP 09/30/18 10:15 136/106 H 09/30/18 04:00 98 F 09/30/18 00:00 98.4 F Weight Admit Weight 105.823 kg Weight 105.823 kg Most Recent Monitor Data Heart Rate from ECG 79 NIBP 136/106 NIBP BP-Mean 116 Respiration from ECG 11 SpO2 98 I&O: 09/29/18 09/30/18 10/01/18 06:59 06:59 06:59 Intake Total 5664 3269.7 Output Total 4515 2845 Balance 1149 424.7 Result Diagrams: 09/27/18 18:28 09/30/18 05:29 Phys Exam - Physical Examination Constitutional: NAD Exam limited due to patient's altered mental state & cooperation HEENT: moist MMs, sclera anicteric Neck: no JVD, supple, full ROM Respiratory: no wheezing, no rhonchi, clear to auscultation bilateral Cardiovascular: RRR, no significant murmur Gastrointestinal: soft, non-tender, positive bowel sounds Musculoskeletal: no edema, pulses present Neurological: moves all 4 limbs is able to squeeze hand shoe dresser on command with 5/5 strength Deviation from normal: alert to sternal rub only, awake for seconds. oriented to person only Skin: no rash, normal turgor Dx/Plan (1) Rhabdomyolysis Code(s): M62.82 - RHABDOMYOLYSIS Status: Acute Qualifiers: Rhabdomyolysis type: non-traumatic Qualified Code(s): M62.82 - Rhabdomyolysis (2) Cocaine abuse Code(s): F14.10 - COCAINE ABUSE, UNCOMPLICATED Status: Acute (3) Seizure disorder Code(s): G40.909 - EPILEPSY, UNSP, NOT INTRACTABLE, WITHOUT STATUS EPILEPTICUS Status: Chronic (4) Chest pain Code(s): R07.9 - CHEST PAIN, UNSPECIFIED Status: Acute Qualifiers: Chest pain type: other chest pain Qualified Code(s): R07.89 - Other chest pain; R07.8 - Other chest pain (5) Hyperlipemia Code(s): E78.5 - HYPERLIPIDEMIA, UNSPECIFIED Status: Acute Qualifiers: Hyperlipidemia type: unspecified Qualified Code(s): E78.5 - Hyperlipidemia , unspecified (6) Hypertension Code(s): I10 - ESSENTIAL (PRIMARY) HYPERTENSION Status: Chronic Qualifiers: Hypertension type: essential hypertension Qualified Code(s): I10 - Essential (primary) hypertension - Plan Plan: Pt is a 42 yo M with history of seizures, heart attack, HLD, and HTN who presents after recent seizure. 1. Seizure -Had 3 witnessed seizures. 1 @ outside ER (09/27), 1 here in ER (09/27), 1 on floor (09/28) -Given loading dose of Keppra 1500 mg @ 2200 on 09/27, continue at 500mg BID on floor starting 09/28, increased to 1000mg BID on 09/29 due to breakthrough seizure overnight -Ativan given in ED, will continue to give prn on floor -Will keep on Seizure precautions and monitor -UDS: + cocaine, repeat UDS on 09/30 positive for cocaine, barbiturates & benzos -CTA of Head & Neck: Neg -CT in outside ER: Neg -Continue home Topamax 100mg BID -concern for possible TIA/CVA due to residual remaining left side weakness and sensory changes, will order MRI Brain W/O contrast & Echo for further workup -MRI: chronic small vessel ischemic changes -ECHO: EF 50-55%, grade 2/3 diastolic dysfunction -A1C 6.1%, Lipid Panel: Triglycerides 173 -Neurology consult--Ariela, appreciate recs-d/c Topamax & Depakote, continue Keppra 1500 mg BID & Dilantin 200 mg BID -Pulm/CC consult--Anaid, appreciate recs- will keep NPO, repeat EEG and try to stimulate a seizure, delay transition back to floor 2. Rhabdomyolysis -CPK: 8291->7448 -> 7332->5965; AST 124->111->120 -given 2L NS in ER -LR @ 200 cc/h -Will monitor CPK and check CMP for kidney function and AST monitoring 3. Chest Pain -Hx of CHRISTOPHER year and half ago -Troponin neg x 2 4. Cocaine Abuse -UDS positive for cocaine -patient states he uses occasionally at social events 5. Hypertension -continue home med Carvedilol, increased from 6.25 to 12.5 on 09/29 6. Hyperlipidemia -continue home med Atorvastatin Condition: Stable Peripheral: Lines DVT PPX: SCDs, Lovenox Code Status: Full Diet: Heart Healthy Dispo: Admitted to in in ICU. Await further recs from Dr. Titus later today. Extended time EEG to monitor for potential seizure-like activity planned for today. Anticipated LOS <2 days. Addendum - Attending - Attending Attestation Date/Time: 10/01/18 1747 I personally evaluated the patient and discussed the management with Dr. lester. I agree with the History, Examination, Assessment and Plan documented above with any addition or exceptions noted below.
[2018-09-30 12:57] LABS: Amphetamine Not Detected (NotDetected); Barbiturates Screen Detected (NotDetected); Benzodiazepine Screen Detected (NotDetected); Cocaine Metabolite Screen Detected (NotDetected); Medtox Control Line Valid? VALID (VALID); Medtox Reader # READER 1; Methadone Not Detected (NotDetected); Methamphetamine Not Detected (NotDetected); Opiate Screen Not Detected (NotDetected); Oxycodone Screen Not Detected (NotDetected); Phencyclidine (PCP) Not Detected (NotDetected); THC/Cannabinoid Screen Not Detected (NotDetected); Tricyclic Screen Not Detected (NotDetected)
[2018-09-30 17:14] LABS: SSA/Ro IgG Antibody Less than 0.3 EliAU/mL (<7 Negative); SSB/La IgG Antibody Less than 0.3 EliAU/mL (<7 Negative)
[2018-09-30 19:42] VITALS: BP 154/105; TEMP 98.5
[2018-09-30] MEDS ORDERED: Lactated Ringer's 1,000 ML IV SCH (20:15)
--- NOTE | 2018-10-01 15:02 | EKG ---
Test Reason : Blood Pressure : / mmHG Vent. Rate : 085 BPM Atrial Rate : 085 BPM P-R Int : 150 ms QRS Dur : 086 ms QT Int : 386 ms P-R-T Axes : 040 -10 -09 degrees QTc Int : 459 ms Normal sinus rhythm Inferior infarct , age undetermined Abnormal ECG Confirmed by MILA KEARNS ([id number]), dictionary editor JELANI GARDNER ([id number]) on 10/01/2018 3:02:12 PM Referred By: Confirmed By:MILA KEARNS
--- NOTE | 2018-10-01 15:04 | EKG ---
Test Reason : Blood Pressure : / mmHG Vent. Rate : 073 BPM Atrial Rate : 073 BPM P-R Int : 162 ms QRS Dur : 088 ms QT Int : 392 ms P-R-T Axes : 038 -11 -09 degrees QTc Int : 431 ms Normal sinus rhythm Confirmed by MILA KEARNS ([id number]), photography editor JELANI GARDNER ([id number]) on 10/01/2018 3:04:23 PM Referred By: Confirmed By:MILA KEARNS
--- NOTE | 2018-10-02 23:36 | DIS ---
DATE OF ADMISSION: 09/27/2018 DATE OF DISCHARGE: 09/30/2018 RESIDENT: Nancy Barrera DO ADMITTING ATTENDING: Macho Joseph MD DISCHARGE ATTENDING: Osvaldo Monsalve MD CONSULTS: 1. Neurology, Ganga Titus MD. 2. Luis Manuel Worrell MD. 3. Physical Therapy. 4. Spiritual Care. PROCEDURES: 1. CT angiography on September 27, 2018: Grossly unremarkable CT angiogram of the head and neck. 2. EKG on September 27, 2018: Normal sinus rhythm, heart rate 85. 3. Chest x-ray on September 27, 2018: No acute findings. 4. CT [place] [facility] [place] ang[facility] with contrast on September 27, 2018: Grossly unremarkable. 5. Brain MRI on September 28, 2018: Absent restricted diffusion. No acute infarct. 6. Echocardiogram on September 29, 2018: EF 50% to 55%, grade 2/3 diastolic dysfunction, mild concentric left ventricular hypertrophy, mild mitral regurgitation, mild tricuspid regurgitation. PRIMARY DIAGNOSIS: Seizures. SECONDARY DIAGNOSES: 1. Rhabdomyolysis. 2. Chest pain. 3. Cocaine abuse. 4. Hypertension. 5. Hyperlipidemia. DISCHARGE MEDICATIONS: 1. Aspirin 81 mg p.o. daily. 2. Atorvastatin 40 mg p.o. at bedtime. 3. Carvedilol 12.5 mg p.o. b.i.d. 4. Levetiracetam (Keppra) 1000 mg p.o. b.i.d. 5. Topamax 100 mg p.o. b.i.d. DISCONTINUED MEDICATIONS: 1. Carvedilol 6.25 mg p.o. b.i.d. 2. Dilantin 200 mg p.o. b.i.d. (not intended to discontinue, but patient left AMA before prescription sent). 3. Depakote 500 mg p.o. b.i.d. 4. Pepcid 20 mg p.o. b.i.d. 5. Lactated Ringer's IV 200 mL/hour. 6. Ondansetron 4 mg p.o. q.6 hours p.r.n. for nausea. 7. Lorazepam (Ativan) 2 mg slow IVP q.15 minutes p.r.n. for seizure. HISTORY OF PRESENT ILLNESS/HOSPITAL COURSE: Mr. Gray is a 42-year-old male with history of seizures, heart attack, hyperlipidemia, and hypertension, who presented to the [facility] ED after a recent seizure. The patient stated that he woke up that morning with soreness down the whole left side of his body. He said his arm was exquisitely sore. He had difficulty moving it when he first woke up. He said he went about his day, but around 3:00 p.m., he went to get food with his girlfriend and said he felt like he could hardly stand because his left leg felt like it was trying to get out when he tried to stand up. He went to the [facility] that was nearby. While he was there, he began to seize. He was given Ativan and sent over to [facility] via EMS. While en route, they said he vomited on himself and stopped breathing for 3 minutes. Upon arrival, he was alert and oriented x1, and did not recall the events after he had arrived to the stand-alone from the ER. In the [facility] ER, labs were drawn, his troponins were negative, CPK 8291 and AST 124. Chest x-ray was normal. He began to seize in the ER again, so Ativan was given as well as a loading dose of Keppra. UDS drug screen was positive for cocaine. The patient stated that he used recreational drugs only at parties. He said he had marijuana last week at a alliance party and cocaine last week at a alliance party. The patient was admitted to the medical floor, Stroke Unit for further evaluation and workup of his seizures. On the morning of September 28, 2018, the patient was seen in bed, stating that he felt like he was in a daze and remained somewhat confused. He remembers being told that he had a seizure; however, he does not actually recall having had multiple seizure episodes over the past 24 hours. He complained of feeling sore all over and had a headache. He also stated that he felt numb on his left face and arm and weakness was observed in the left side of his body on exam. A brain MRI obtained later that day was normal. Later that evening at approximately 20:27, the patient had another seizure witnessed by nursing staff. It lasted for about 1.5 minutes, the patient lost consciousness and was shaking, and the patient was able to respond quickly after the seizure-like activity ended. Later in the night, the patient attempted to leave the hospital AMA, stating that he had multiple family and relationship problems he needed to take care of. The patient was convinced to stay due to the risk of leaving after another possible seizure. On the morning of September 29, the patient was seen and did not recall having had a seizure the night prior, but he did remember being told that he had one by his nurse and family members. Later in the day around 11:00 a.m., the patient again attempted to leave AMA stating that he had to take his child to a doctor's appointment. The patient was convinced to stay citing need for further evaluation and risk of having another seizure outside of the hospital. The patient remained until approximately 12:00 p.m. when he was again contemplating leaving again AMA. Attending physician, Dr. Monsalve, was called to his room around 12:30 and was discussing the risk of leaving AMA. During the discussion, the patient called out and said he felt bad all over and was having severe chest pain. He then slowly laid back and became unresponsive. He began having diffuse muscle twitching and muscle extension and flexion. 4 mg of Ativan was given IM since there was no IV access. Several minutes later, he became alert and began asking for his child. Then he became unresponsive again and had muscle jerking with extension/flexion muscle activity. All throughout the seizure, the nursing team was attempting to acquire IV access. IV access had previously been discontinued since the patient was attempting to leave AMA. The patient received an additional two more IM doses of Ativan 4 mg for a total of 12 mg of Ativan total. A diagnosis of status epilepticus was made and a colt lindsey was called. IV access x1 was achieved and the patient was transferred down to the ICU. Intubation was considered. However, upon arrival to the ICU, he became more aware and conversant. A second IV access site was established and the patient was treated with phenytoin. Dr. Worrell was called in for a consult regarding the patient. There was some question at this time whether the patient had been in true status epilepticus seizure due to the patient's minimal postictal state following the seizure. After the events, the patient was speaking and following simple commands. He denied any complaints. When asked questions, he kept his eyes closed on purpose and was smiling throughout questions. Dr. Worrell planned to observe the patient in the ICU for one night and plan for an extended EEG to observe if any seizure activity could be recorded. Dr. Titus saw the patient on September 29, 2018 and recommended discontinuing Topamax and Depakote, continuing Keppra at 1500 mg b.i.d., and continuing Dilantin 200 mg b.i.d. On the morning of September 30, 2018, the patient was alert only to sternal rub. He was very disoriented, but was able to then claim after further questioning that he does remember having seizures the day before. An EEG was started around 10:00 a.m. that morning, was studied until 4:00 p.m. that day. No seizure activity was observed during that time. Attempts to stimulate a seizure were made during that time using lights, but no seizure was stimulated. The patient's CK when he initially came in was elevated at 8921 and did not trend down appropriately. Normally, we would expect the CK to half with each successive 24 hours; however, by day 3 of admission, the CK had only trended to 5965. Because of the delay in CK trending back to a normal range, and repeated seizure activity during the hospital stay, and because of normal extensive imaging studies, the patient's UDS screen was repeated. The UDS repeat on September 30, 2018 demonstrated positive for cocaine, barbiturates, and benzodiazepines. At this time the pharmacy team was consulted for a review of the patients MAR. The only substance that can be accounted for by prescribed medications given in the hospital is benzodiazepines. Therefore, it is speculated that the patient was consuming cocaine and barbiturates during his hospital stay and this might be a potential cause for his repeated seizures while in the hospital. There is also some question as to whether some of the seizures were in fact true seizures versus pseudoseizures. In the afternoon on September 30, 2018, the patient was transferred back out of the ICU to the Stroke unit floor. At approximately 20:35 that evening, the patient stated that he wanted to leave AMA immediately. AMA paperwork was signed and the patient left the floor at 20:41 before a physician was able to see him to cosmetic counselor again on risks of leaving. PERTINENT LABORATORY DATA: 1. Labs on September 27, 2018: a. CMP; sodium 136, potassium 3.6, chloride 105, carbon dioxide 21, BUN 18, creatinine 1.15, glucose 115, calcium 8.8, total bilirubin 0.6, AST 124, ALT 54, alkaline phosphatase 96. b. Creatine kinase (CK) 8921. c. Troponins negative x3. d. Prolactin 31.33. e. CBC: WBC 6.5, hemoglobin 14.8, hematocrit 45.1, platelets 235. f. UDS positive for cocaine. 2. Labs on September 28, 2018: a. Sodium 135, potassium 4.1, chloride 108, carbon dioxide 19, BUN 13, creatinine 1.04, glucose 102, calcium 8.3, total bilirubin 0.6, AST 111, ALT 48, alkaline phosphatase 82. b. Creatine kinase 7448. c. Lipid panel: Triglycerides 173, cholesterol 130, LDL 68, HDL 27. d. Hemoglobin A1c 6.1. e. TSH 1.09. 3. Labs on September 29, 2018: a. Sodium 138, potassium 3.7, chloride 108, carbon dioxide 21, BUN 15, creatinine 1.27, glucose 127, calcium 9.4, total bilirubin 0.3, AST 120, ALT 48, alkaline phosphatase 86, creatine kinase 7332. b. MIHIR and anti-HANNA negative, SS-A/RO IgG antibody negative, SS-B/La IgG antibody negative. 4. Labs on September 30, 2018: a. Phenytoin level 19.0. b. UDS positive for cocaine, barbiturates, benzodiazepines. c. Prolactin 17.12. DISPOSITION: Stable. DISCHARGE INSTRUCTIONS: Not given due to patient leaving AMA from the hospital on September 30, 2018 at approximately 8:30 p.m. Job ID: [id number] LIBBY
== END 2018-09-30 20:41 | disposition left against medical advice (07) | DRG 101 ==
LOC: ERS 17:49 → 2SE 22:56 → OBSVTOIN 22:56 → CCU 09-29 13:49 → IMCU/EMU 09-30 15:59 → 2SE 09-30 19:06
PROVIDERS: ADMIT Emergency Medicine; ATTEND Emergency Medicine
DX: G40.909 Epilepsy, unspecified, not intractable, without status epilepticus (principal); M62.82 Rhabdomyolysis; E78.5 Hyperlipidemia, unspecified; R07.89 Other chest pain; I10 Essential (primary) hypertension; F41.9 Anxiety disorder, unspecified; E11.9 Type 2 diabetes mellitus without complications; F14.10 Cocaine abuse, uncomplicated; G43.909 Migraine, unspecified, not intractable, without status migrainosus; F12.10 Cannabis abuse, uncomplicated; Z53.21 Procedure and treatment not carried out due to patient leaving prior to being seen by health care provider; Z95.5 Presence of coronary angioplasty implant and graft; I25.2 Old myocardial infarction; Z91.14 Patient's other noncompliance with medication regimen; Z88.5 Allergy status to narcotic agent; Z79.82 Long term (current) use of aspirin; Z79.899 Other long term (current) drug therapy
CPT/HCPCS: 36415; 36416; 70496; 70498; 70551; 71045; 80053; 80061; 80177; 80185; 80306; 82550; 83036; 84146; 84443; 84484; 85025; 85652; 86140; 86235; 90471; 90670; 93005; 93010; 93306; 95816; 95819; 95953; 96361; 96365; 96375; G0009; J1650; J1953; J2060; J2250; Q2009; Q9966

== ENCOUNTER 2020-11-23 16:19 | Emergency (ER) | payer OTHER ==
[2020-11-23] MEDS ORDERED: Lorazepam 2 MG/ML VIAL ONE (16:25)
[2020-11-23 16:57] LABS: Hemoglobin 15.2 g/dL (14.0-18.0); Mean Corpuscular HGB CONC 32.3 g/dL (32.0-36.0); Mean Corpuscular Hemoglobin 28.4 pg (27.0-31.0); Mean Corpuscular Volume 87.8 fL (78.0-98.0); Mean Platelet Volume 7.7 fL (7.4-10.4); Platelet Count 288 thou/uL (130-400); RBC Distribution Width 12.4 % (11.5-14.5); Red Blood Cell (RBC) Count 5.35 mill/uL (4.70-6.10); White Blood Cell (WBC) Count 8.8 thou/uL (4.8-10.8)
[2020-11-23 17:13] LABS: Eosinophils 1 % (0-10); Lymphocytes 21 % (21-51); MDiff Complete? YES; Monocytes 15 % (0-10); Neutrophil 62 % (42-75); Platelet Morphology Comment Appears Adequate; RBC Morphology Normal
[2020-11-23 17:16] LABS: Anion Gap 12 mmol/L (10-20); BUN (Urea Nitrogen) 14 mg/dL (8.9-20.6); Calc. Creatinine Clearance 0 mL/min (70-130); Carbon Dioxide 25 mmol/L (22-29); Chloride 104 mmol/L (98-107); Potassium 3.8 mmol/L (3.5-5.1); Sodium 137 mmol/L (136-145)
[2020-11-23 17:17] LABS: ALT (SGPT) 17 U/L (8-55); AST (SGOT) 23 U/L (5-34); Albumin 4.4 g/dL (3.5-5.0); Alkaline Phosphatase 80 U/L (40-110); Bilirubin, Total 1.3 mg/dL (0.2-1.2); Calcium 9.4 mg/dL (7.8-10.44); Globulin 3.2 g/dL (2.4-3.5); Glucose 106 mg/dL (70-105); Protein, Total 7.6 g/dL (6.0-8.3)
[2020-11-23 17:18] LABS: Bacteria/HPF None Seen HPF (None Seen); Bilirubin Negative (Negative); Blood, Urine 1+ (Negative); Clarity Clear (Clear); Glucose, Urine (Dipstick) 50 mg/dL (Negative); Ketone, Urine Negative (Negative); Leukocyte Negative Leu/uL (Negative); Nitrite Negative (Negative); Protein, Urine (Dipstick) 30 mg/dL (Neg-Trace); Specific Gravity, Urine 1.027 (1.002-1.036); Squamous Epithelial None Seen HPF (0-3); Urobilinogen 3 mg/dL (Less than 2); WBC/HPF 0-3 HPF (0-3); pH, Urine 6.5 (5.0-9.0)
[2020-11-23 17:20] LABS: Acetaminophen Less than 6.0 mcg/mL (10.0-30.0); Alcohol Less than 10 mg/dL (Less than 10); Salicylate Less than 8.0 mg/dL (15.0-30.0)
[2020-11-23 17:24] LABS: Amphetamine Detected (NotDetected); Barbiturates Screen Not Detected (NotDetected); Benzodiazepine Screen Not Detected (NotDetected); Cocaine Metabolite Screen Detected (NotDetected); Methadone Not Detected (NotDetected); Methamphetamine Detected (NotDetected); Opiate Screen Not Detected (NotDetected); Oxycodone Screen Not Detected (NotDetected); Phencyclidine (PCP) Not Detected (NotDetected); THC/Cannabinoid Screen Detected (NotDetected); Tricyclic Screen Not Detected (NotDetected)
== END 2020-11-23 21:13 | disposition home or self-care (01) ==
LOC: ERS 16:19
DX: F19.10 Other psychoactive substance abuse, uncomplicated (principal); R00.0 Tachycardia, unspecified; I25.2 Old myocardial infarction; E11.9 Type 2 diabetes mellitus without complications; E78.5 Hyperlipidemia, unspecified; I10 Essential (primary) hypertension; F17.200 Nicotine dependence, unspecified, uncomplicated
CPT/HCPCS: 51701; 71045; 80053; 80306; 80307; 81003; 81015; 82550; 83605; 84484; 85025; 93005; 94760; 96374; J2060

== ENCOUNTER 2021-03-23 00:15 | Emergency (ER) | payer OTHER | END 2021-03-23 00:38 | LOC: ERS 00:15 | DX: Z00.00 Encounter for general adult medical examination without abnormal findings (principal); I10 Essential (primary) hypertension; E11.9 Type 2 diabetes mellitus without complications; E78.5 Hyperlipidemia, unspecified; I25.2 Old myocardial infarction; F17.200 Nicotine dependence, unspecified, uncomplicated | CPT/HCPCS: 99284 ==

== ENCOUNTER 2021-04-08 18:01 | Emergency (ER) | payer OTHER ==
[2021-04-08] MEDS ORDERED: Morphine 4 MG/ML VIAL ONE (18:16)
[2021-04-08] MEDS ORDERED: Acetaminophen 500 MG TAB ONE (18:16)
[2021-04-08] MEDS ORDERED: Midazolam HCl 2 mg/2 ml Vial ONE (18:16)
[2021-04-08] MEDS ORDERED: Ketorolac Tromethamine 30 MG/ML VIAL ONE (18:16)
== END 2021-04-08 21:17 | disposition home or self-care (01) ==
LOC: ERS 18:01
DX: S43.402A Unspecified sprain of left shoulder joint, initial encounter (principal); I10 Essential (primary) hypertension; E11.9 Type 2 diabetes mellitus without complications; E78.5 Hyperlipidemia, unspecified; I25.2 Old myocardial infarction; F17.200 Nicotine dependence, unspecified, uncomplicated; W01.0XXA Fall on same level from slipping, tripping and stumbling without subsequent striking against object, initial encounter; Y93.01 Activity, walking, marching and hiking; Y92.512 Supermarket, store or market as the place of occurrence of the external cause
CPT/HCPCS: 93005; 96372; J1885; J2250; J2270

== ENCOUNTER 2021-05-12 16:36 | Emergency (ER) | payer OTHER ==
[2021-05-12 17:38] LABS: #Basophils 0.1 thou/uL (0.0-0.2); #Eosinphils 0.1 thou/uL (0.0-0.7); #Lymphocytes 2.5 thou/uL (1.20-3.40); #Monocytes 0.8 thou/uL (0.11-0.59); #Neutrophils 4.5 thou/uL (1.40-6.50); %Basophils 0.9 % (0.0-1.0); %Eosinophils 1.1 % (0.0-10.0); %Monocytes 10.5 % (0.0-10.0); %Neutrophils 56.5 % (42.0-75.0); Hemoglobin 13.8 g/dL (14.0-18.0); Mean Corpuscular HGB CONC 31.1 g/dL (32.0-36.0); Mean Corpuscular Volume 90.3 fL (78.0-98.0); Mean Platelet Volume 6.9 fL (7.4-10.4); Platelet Count 306 thou/uL (130-400); RBC Distribution Width 12.5 % (11.5-14.5); Red Blood Cell (RBC) Count 4.94 mill/uL (4.70-6.10)
[2021-05-12 18:03] LABS: ALT (SGPT) 22 U/L (8-55); AST (SGOT) 29 U/L (5-34); Albumin 3.5 g/dL (3.5-5.0); Alkaline Phosphatase 59 U/L (40-110); Anion Gap 12 mmol/L (10-20); BUN (Urea Nitrogen) 18 mg/dL (8.9-20.6); Bilirubin, Total 0.8 mg/dL (0.2-1.2); CK (CPK) 585 U/L (30-200); Calc. Creatinine Clearance 0 mL/min (70-130); Calcium 8.3 mg/dL (7.8-10.44); Carbon Dioxide 20 mmol/L (22-29); Chloride 105 mmol/L (98-107); Globulin 2.5 g/dL (2.4-3.5); Glucose 122 mg/dL (70-105); Lipase 25 U/L (8-78); Potassium 3.8 mmol/L (3.5-5.1); Sodium 133 mmol/L (136-145)
== END 2021-05-12 18:30 ==
LOC: ERS 16:36
DX: R07.89 Other chest pain (principal); I10 Essential (primary) hypertension; E11.9 Type 2 diabetes mellitus without complications; E78.5 Hyperlipidemia, unspecified; I25.2 Old myocardial infarction; F17.200 Nicotine dependence, unspecified, uncomplicated
CPT/HCPCS: 36415; 71045; 80053; 82550; 83690; 83880; 84484; 85025; 93005

== ENCOUNTER 2021-11-03 15:15 | Inpatient (IN) | payer OTHER ==
[2021-11-03 15:32] LABS: #Basophils 0.1 thou/uL (0.0-0.2); #Eosinphils 0.1 thou/uL (0.0-0.7); #Neutrophils 4.4 thou/uL (1.40-6.50); %Basophils 0.9 % (0.0-1.0); %Eosinophils 1.4 % (0.0-10.0); %Monocytes 13.5 % (0.0-10.0); %Neutrophils 58.2 % (42.0-75.0); Hemoglobin 14.6 g/dL (14.0-18.0); Mean Corpuscular Hemoglobin 27.9 pg (27.0-31.0); Mean Corpuscular Volume 90.1 fL (78.0-98.0); Mean Platelet Volume 7.7 fL (7.4-10.4); Platelet Count 264 thou/uL (130-400); Red Blood Cell (RBC) Count 5.22 mill/uL (4.70-6.10); White Blood Cell (WBC) Count 7.6 thou/uL (4.8-10.8)
[2021-11-03] MEDS ORDERED: Naloxone HCl 2 mg/2 ml Syringe ONE (15:32)
[2021-11-03 16:07] LABS: ALT (SGPT) 29 U/L (8-55); AST (SGOT) 33 U/L (5-34); Albumin 4.1 g/dL (3.5-5.0); Alkaline Phosphatase 69 U/L (40-110); Anion Gap 10 mmol/L (10-20); BUN (Urea Nitrogen) 19 mg/dL (8.9-20.6); Bilirubin, Total 0.6 mg/dL (0.2-1.2); CK (CPK) 546 U/L (30-200); Calc. Creatinine Clearance 0 mL/min (70-130); Calcium 9.2 mg/dL (7.8-10.44); Carbon Dioxide 26 mmol/L (22-29); Chloride 108 mmol/L (98-107); Estimated GFR 45; Globulin 3.3 g/dL (2.4-3.5); Glucose 118 mg/dL (70-105); Potassium 4.3 mmol/L (3.5-5.1); Protein, Total 7.4 g/dL (6.0-8.3); Sodium 140 mmol/L (136-145)
[2021-11-03] MEDS ORDERED: hydrALAZINE 20 MG/ML VIAL ONE (16:32)
[2021-11-03] MEDS ORDERED: Electrolyte Replacement Protocol 1 EACH IVPB ONE (16:35)
[2021-11-03] MEDS ORDERED: Electrolyte Replacement Protocol FS PRN (16:45)
[2021-11-03] MEDS ORDERED: Sodium Chloride 0.9% 1,000 ML IV SCH (16:45)
[2021-11-03 16:57] LABS: Bilirubin Negative (Negative); Blood, Urine 1+ (Negative); Clarity Clear (Clear); Glucose, Urine (Dipstick) 70 mg/dL (Negative); Ketone, Urine Negative (Negative); Leukocyte Negative Leu/uL (Negative); Nitrite Negative (Negative); Protein, Urine (Dipstick) 70 mg/dL (Neg-Trace); RBC/HPF 21-50 HPF (0-3); Specific Gravity, Urine 1.035 (1.002-1.036); Squamous Epithelial None Seen HPF (0-3); pH, Urine 5.5 (5.0-9.0)
[2021-11-03 16:58] LABS: Bacteria/HPF Rare-Few HPF (None Seen); Sperm/HPF Rare HPF (None Seen)
[2021-11-03 17:01] LABS: Amphetamine Detected (NotDetected); Barbiturates Screen Not Detected (NotDetected); Benzodiazepine Screen Not Detected (NotDetected); Cocaine Metabolite Screen Detected (NotDetected); Methadone Not Detected (NotDetected); Methamphetamine Detected (NotDetected); Opiate Screen Not Detected (NotDetected); Oxycodone Screen Not Detected (NotDetected); Phencyclidine (PCP) Not Detected (NotDetected); THC/Cannabinoid Screen Detected (NotDetected); Tricyclic Screen Not Detected (NotDetected)
[2021-11-03] MEDS ORDERED: cloNIDine 0.1mg/24 Hour PATCH TD SCH (17:15)
[2021-11-03] MEDS: niCARdipine 25 MG in Sodium Chloride 0.9% 250 ML 250 ML IVPB PRN ×2 (18:16→22:13)
[2021-11-03] MEDS: Sodium Chloride 0.9% 1,000 ML IV SCH ×2 (18:17→20:09)
[2021-11-03] MEDS: levETIRAcetam 500 MG/5 ML VIAL SLOW IVP SCH (20:09)
[2021-11-03 20:10] LABS: SARS-CoV-2 NAA Rapid Test Not Detected (NotDetected)
[2021-11-03] MEDS ORDERED: Lorazepam 2 MG/ML VIAL SLOW IVP PRN (20:14)
[2021-11-03] MEDS ORDERED: Lorazepam (BATCHED) 2 MG/ML SYR SLOW IVP SCH (20:15)
[2021-11-03 21:07] VITALS: BMI 31.2
[2021-11-04 04:50] LABS: #Eosinphils 0.1 thou/uL (0.0-0.7); #Lymphocytes 2.3 thou/uL (1.20-3.40); #Monocytes 1.1 thou/uL (0.11-0.59); #Neutrophils 4.3 thou/uL (1.40-6.50); %Basophils 0.6 % (0.0-1.0); %Eosinophils 1.4 % (0.0-10.0); %Lymphocytes 29.3 % (21.0-51.0); %Monocytes 13.9 % (0.0-10.0); %Neutrophils 54.8 % (42.0-75.0); Hemoglobin 14.3 g/dL (14.0-18.0); Mean Corpuscular HGB CONC 31.1 g/dL (32.0-36.0); Mean Corpuscular Hemoglobin 28.4 pg (27.0-31.0); Mean Corpuscular Volume 91.1 fL (78.0-98.0); Mean Platelet Volume 7.7 fL (7.4-10.4); Platelet Count 254 thou/uL (130-400); Red Blood Cell (RBC) Count 5.03 mill/uL (4.70-6.10); White Blood Cell (WBC) Count 7.8 thou/uL (4.8-10.8)
[2021-11-04 05:11] LABS: Anion Gap 9 mmol/L (10-20); BUN (Urea Nitrogen) 12 mg/dL (8.9-20.6); CK (CPK) 647 U/L (30-200); Calc. Creatinine Clearance 96 mL/min (70-130); Calcium 8.6 mg/dL (7.8-10.44); Carbon Dioxide 25 mmol/L (22-29); Cardiac Risk 5.3 (Less than 4.5); Chloride 108 mmol/L (98-107); Cholesterol 179 mg/dl (< 200 Desired); Estimated GFR 74; Glucose 90 mg/dL (70-105); HDL Cholesterol 34 mg/dL (>60 Neg Risk); LDL Cholesterol, Calculated 132 mg/dL; Potassium 4.2 mmol/L (3.5-5.1); Sodium 138 mmol/L (136-145); Triglycerides 66 mg/dL (Less than 150)
[2021-11-04] MEDS: Sodium Chloride 0.9% 1,000 ML IV SCH ×3 (05:35→17:53)
[2021-11-04] MEDS ORDERED: Acetaminophen 325 MG TAB PO PRN (07:46)
[2021-11-04] MEDS ORDERED: Ondansetron PF 4 MG/2 ML Vial IVP PRN (07:56)
[2021-11-04] MEDS: levETIRAcetam 500 MG/5 ML VIAL SLOW IVP SCH ×2 (09:08→20:03)
[2021-11-04] MEDS ORDERED: ALPRAZolam 0.5 MG TAB PO PRN (10:58)
[2021-11-05] MEDS: Sodium Chloride 0.9% 1,000 ML IV SCH ×3 (00:37→18:29)
[2021-11-05 04:23] LABS: #Basophils 0.1 thou/uL (0.0-0.2); #Eosinphils 0.1 thou/uL (0.0-0.7); #Lymphocytes 1.8 thou/uL (1.20-3.40); #Monocytes 0.6 thou/uL (0.11-0.59); #Neutrophils 4.2 thou/uL (1.40-6.50); %Basophils 0.9 % (0.0-1.0); %Eosinophils 1.3 % (0.0-10.0); %Lymphocytes 26.7 % (21.0-51.0); %Monocytes 9.5 % (0.0-10.0); %Neutrophils 61.5 % (42.0-75.0); Hemoglobin 13.7 g/dL (14.0-18.0); Mean Corpuscular HGB CONC 31.4 g/dL (32.0-36.0); Mean Corpuscular Hemoglobin 28.7 pg (27.0-31.0); Mean Corpuscular Volume 91.3 fL (78.0-98.0); Mean Platelet Volume 7.7 fL (7.4-10.4); Platelet Count 242 thou/uL (130-400); RBC Distribution Width 12.8 % (11.5-14.5); Red Blood Cell (RBC) Count 4.78 mill/uL (4.70-6.10); White Blood Cell (WBC) Count 6.8 thou/uL (4.8-10.8)
[2021-11-05 04:42] LABS: ALT (SGPT) 17 U/L (8-55); AST (SGOT) 24 U/L (5-34); Albumin 3.3 g/dL (3.5-5.0); Alkaline Phosphatase 83 U/L (40-110); Anion Gap 11 mmol/L (10-20); BUN (Urea Nitrogen) 14 mg/dL (8.9-20.6); Bilirubin, Total 1.2 mg/dL (0.2-1.2); CK (CPK) 457 U/L (30-200); Calc. Creatinine Clearance 100 mL/min (70-130); Calcium 8.3 mg/dL (7.8-10.44); Carbon Dioxide 20 mmol/L (22-29); Chloride 107 mmol/L (98-107); Estimated GFR 77; Globulin 2.5 g/dL (2.4-3.5); Glucose 83 mg/dL (70-105); Magnesium 1.8 mg/dL (1.6-2.6); Protein, Total 5.8 g/dL (6.0-8.3); Sodium 134 mmol/L (136-145)
[2021-11-05] MEDS: hydrALAZINE 20 MG/ML VIAL SLOW IVP PRN ×4 (05:04→10:21)
[2021-11-05] MEDS ORDERED: Magnesium 2 GM/50 ML(in water) 2 GM in Premix Bag 1 BAG IVPB SCH (08:00)
[2021-11-05] MEDS: Acetaminophen/Codeine 30-300mg Tablet PO PRN ×3 (08:24→20:57)
[2021-11-05] MEDS: levETIRAcetam 500 MG/5 ML VIAL SLOW IVP SCH ×2 (08:24→20:57)
[2021-11-05] MEDS ORDERED: levETIRAcetam 3,000 MG, Admixture Fee 1 EACH in Sodium Chloride 0.9% 100 ML IVPB SCH (14:30)
[2021-11-05] MEDS ORDERED: Lorazepam 2 MG/ML VIAL IM PRN (15:38)
[2021-11-05] MEDS ORDERED: Ondansetron ODT 4 MG TAB PO PRN (15:38)
[2021-11-05] MEDS ORDERED: Lorazepam 1 MG TAB PO PRN (15:38)
[2021-11-05] MEDS ORDERED: Thiamine HCl 200 MG/2 ML VIAL SLOW IVP SCH (15:45)
[2021-11-05] MEDS ORDERED: Electrolyte Replacement Protocol FS PRN (15:45)
[2021-11-05] MEDS: Thiamine HCl 200 MG/2 ML VIAL SLOW IVP SCH (16:54)
[2021-11-05] MEDS: Lorazepam 1 MG TAB PO SCH ×2 (18:28→18:37)
[2021-11-05] MEDS: Atorvastatin Calcium 40 MG TAB PO SCH (20:58)
[2021-11-05] MEDS ORDERED: levETIRAcetam 500 MG TAB PO SCH (21:00)
[2021-11-05] MEDS ORDERED: Lorazepam 2 MG/ML VIAL SLOW IVP SCH (22:00)
[2021-11-06] MEDS: Lorazepam 1 MG TAB PO SCH ×4 (01:30→19:21)
[2021-11-06] MEDS: hydrALAZINE 20 MG/ML VIAL SLOW IVP PRN (03:59)
[2021-11-06 05:09] LABS: #Eosinphils 0.1 thou/uL (0.0-0.7); #Lymphocytes 1.7 thou/uL (1.20-3.40); #Monocytes 0.6 thou/uL (0.11-0.59); %Basophils 0.3 % (0.0-1.0); %Eosinophils 1.2 % (0.0-10.0); %Monocytes 13.7 % (0.0-10.0); %Neutrophils 45.7 % (42.0-75.0); Hemoglobin 13.1 g/dL (14.0-18.0); Mean Corpuscular HGB CONC 30.4 g/dL (32.0-36.0); Mean Corpuscular Hemoglobin 27.9 pg (27.0-31.0); Mean Corpuscular Volume 91.7 fL (78.0-98.0); Mean Platelet Volume 7.5 fL (7.4-10.4); Platelet Count 249 thou/uL (130-400); RBC Distribution Width 12.8 % (11.5-14.5); Red Blood Cell (RBC) Count 4.69 mill/uL (4.70-6.10); White Blood Cell (WBC) Count 4.5 thou/uL (4.8-10.8)
[2021-11-06 05:25] LABS: ALT (SGPT) 13 U/L (8-55); AST (SGOT) 20 U/L (5-34); Albumin 3.3 g/dL (3.5-5.0); Alkaline Phosphatase 73 U/L (40-110); Anion Gap 9 mmol/L (10-20); BUN (Urea Nitrogen) 12 mg/dL (8.9-20.6); Bilirubin, Total 0.6 mg/dL (0.2-1.2); CK (CPK) 458 U/L (30-200); Calc. Creatinine Clearance 103 mL/min (70-130); Calcium 8.3 mg/dL (7.8-10.44); Carbon Dioxide 24 mmol/L (22-29); Chloride 108 mmol/L (98-107); Estimated GFR 80; Globulin 2.6 g/dL (2.4-3.5); Glucose 86 mg/dL (70-105); Potassium 4.1 mmol/L (3.5-5.1); Protein, Total 5.9 g/dL (6.0-8.3); Sodium 137 mmol/L (136-145)
[2021-11-06] MEDS: Sodium Chloride 0.9% 1,000 ML IV SCH ×3 (06:03→19:44)
[2021-11-06] MEDS: Folic Acid 1 MG TAB PO SCH (08:45)
[2021-11-06] MEDS: Multivit, Therapeutic 1 TAB PO SCH (08:47)
[2021-11-06] MEDS ORDERED: Lorazepam 1 MG TAB PO PRN (15:38)
[2021-11-06] MEDS: levETIRAcetam 500 MG/5 ML VIAL SLOW IVP SCH ×2 (16:30→21:29)
[2021-11-06] MEDS: Thiamine HCl 200 MG/2 ML VIAL SLOW IVP SCH (16:52)
[2021-11-06] MEDS: Atorvastatin Calcium 40 MG TAB PO SCH (21:29)
[2021-11-07] MEDS: hydrALAZINE 20 MG/ML VIAL SLOW IVP PRN ×2 (00:50→06:07)
[2021-11-07] MEDS: Lorazepam 1 MG TAB PO SCH ×3 (00:57→13:03)
[2021-11-07 05:13] LABS: #Eosinphils 0.1 thou/uL (0.0-0.7); #Lymphocytes 2.1 thou/uL (1.20-3.40); #Monocytes 0.6 thou/uL (0.11-0.59); #Neutrophils 2.8 thou/uL (1.40-6.50); %Basophils 0.8 % (0.0-1.0); %Eosinophils 2.2 % (0.0-10.0); %Lymphocytes 37.1 % (21.0-51.0); %Monocytes 10.5 % (0.0-10.0); %Neutrophils 49.4 % (42.0-75.0); Hemoglobin 13.4 g/dL (14.0-18.0); Mean Corpuscular HGB CONC 30.9 g/dL (32.0-36.0); Mean Corpuscular Hemoglobin 28.3 pg (27.0-31.0); Mean Corpuscular Volume 91.3 fL (78.0-98.0); Mean Platelet Volume 7.8 fL (7.4-10.4); Platelet Count 252 thou/uL (130-400); RBC Distribution Width 12.7 % (11.5-14.5); Red Blood Cell (RBC) Count 4.75 mill/uL (4.70-6.10); White Blood Cell (WBC) Count 5.6 thou/uL (4.8-10.8)
[2021-11-07 05:30] LABS: ALT (SGPT) 13 U/L (8-55); AST (SGOT) 22 U/L (5-34); Albumin 3.4 g/dL (3.5-5.0); Alkaline Phosphatase 81 U/L (40-110); Anion Gap 11 mmol/L (10-20); BUN (Urea Nitrogen) 16 mg/dL (8.9-20.6); Bilirubin, Total 0.3 mg/dL (0.2-1.2); CK (CPK) 386 U/L (30-200); Calc. Creatinine Clearance 104 mL/min (70-130); Calcium 8.8 mg/dL (7.8-10.44); Carbon Dioxide 22 mmol/L (22-29); Chloride 108 mmol/L (98-107); Estimated GFR 76; Globulin 2.8 g/dL (2.4-3.5); Glucose 143 mg/dL (70-105); Potassium 4.2 mmol/L (3.5-5.1); Protein, Total 6.2 g/dL (6.0-8.3); Sodium 137 mmol/L (136-145)
[2021-11-07] MEDS: Multivit, Therapeutic 1 TAB PO SCH (08:29)
[2021-11-07] MEDS: Folic Acid 1 MG TAB PO SCH (08:29)
[2021-11-07] MEDS: levETIRAcetam 500 MG/5 ML VIAL SLOW IVP SCH (08:29)
[2021-11-07] MEDS: Sodium Chloride 0.9% 1,000 ML IV SCH (08:47)
[2021-11-07 12:09] VITALS: BP 154/102; TEMP 97.9
[2021-11-07] MEDS ORDERED: Lorazepam 1 MG TAB PO PRN (15:38)
[2021-11-07] MEDS ORDERED: Lorazepam 0.5 MG TAB PO SCH (23:59)
[2021-11-08] MEDS ORDERED: Lorazepam 0.5 MG TAB PO PRN (15:38)
[2021-11-08] MEDS ORDERED: Thiamine 100 MG TAB PO SCH ×2 (15:45→16:00)
== END 2021-11-07 13:05 | disposition home or self-care (01) | DRG 64 ==
LOC: ERS 15:15 → ERHOLD 16:25 → CCU 19:29 → NEURO 11-05 11:52
PROVIDERS: ADMIT Hospitalist; ATTEND Hospitalist
DX: I61.0 Nontraumatic intracerebral hemorrhage in hemisphere, subcortical (principal); G92.8 Other toxic encephalopathy; J96.01 Acute respiratory failure with hypoxia; N17.9 Acute kidney failure, unspecified; M62.82 Rhabdomyolysis; R45.851 Suicidal ideations; Z20.822 Contact with and (suspected) exposure to COVID-19; E78.5 Hyperlipidemia, unspecified; F17.210 Nicotine dependence, cigarettes, uncomplicated; F14.10 Cocaine abuse, uncomplicated; F12.10 Cannabis abuse, uncomplicated; F15.10 Other stimulant abuse, uncomplicated; G40.409 Other generalized epilepsy and epileptic syndromes, not intractable, without status epilepticus; I25.10 Atherosclerotic heart disease of native coronary artery without angina pectoris; M79.675 Pain in left toe(s); M79.89 Other specified soft tissue disorders; N18.2 Chronic kidney disease, stage 2 (mild); F32.A Depression, unspecified; D18.02 Hemangioma of intracranial structures; E11.22 Type 2 diabetes mellitus with diabetic chronic kidney disease; I12.9 Hypertensive chronic kidney disease with stage 1 through stage 4 chronic kidney disease, or unspecified chronic kidney disease; Z88.5 Allergy status to narcotic agent; Z79.899 Other long term (current) drug therapy; Z79.82 Long term (current) use of aspirin; Z90.49 Acquired absence of other specified parts of digestive tract; Z98.890 Other specified postprocedural states; Z71.51 Drug abuse counseling and surveillance of drug abuser; Z78.1 Physical restraint status
CPT/HCPCS: 36415; 36416; 70450; 70553; 74230; 80048; 80053; 80061; 80306; 81003; 81015; 82550; 83735; 83880; 84100; 84484; 85025; 93005; 93010; 94760; 95712; 95819; 95957; 96361; 96374; J0360; J1953; J2060; J2310; J3411; J3475; J7050

== ENCOUNTER 2021-11-20 13:37 | Emergency (ER) | payer OTHER | END 2021-11-20 15:35 | LOC: ERS 13:37 | DX: R45.851 Suicidal ideations (principal); R51.9 Headache, unspecified; I25.2 Old myocardial infarction; E11.9 Type 2 diabetes mellitus without complications; E78.5 Hyperlipidemia, unspecified; I10 Essential (primary) hypertension | CPT/HCPCS: 70450; 94760 ==

== ENCOUNTER 2021-12-11 06:47 | Emergency (ER) | payer OTHER ==
[2021-12-11] MEDS ORDERED: Acetaminophen 500 MG TAB ONE (07:05)
[2021-12-11 07:32] LABS: #Basophils 0.1 thou/uL (0.0-0.2); #Eosinphils 0.1 thou/uL (0.0-0.7); #Lymphocytes 2.3 thou/uL (1.20-3.40); #Monocytes 0.8 thou/uL (0.11-0.59); #Neutrophils 2.5 thou/uL (1.40-6.50); %Eosinophils 1.9 % (0.0-10.0); %Lymphocytes 40.1 % (21.0-51.0); %Monocytes 14.2 % (0.0-10.0); %Neutrophils 42.8 % (42.0-75.0); Hemoglobin 13.8 g/dL (14.0-18.0); Mean Corpuscular HGB CONC 32.3 g/dL (32.0-36.0); Mean Corpuscular Hemoglobin 28.7 pg (27.0-31.0); Mean Platelet Volume 7.7 fL (7.4-10.4); Platelet Count 257 thou/uL (130-400); RBC Distribution Width 12.5 % (11.5-14.5); Red Blood Cell (RBC) Count 4.81 mill/uL (4.70-6.10); White Blood Cell (WBC) Count 5.8 thou/uL (4.8-10.8)
[2021-12-11 07:45] LABS: ALT (SGPT) 18 U/L (8-55); AST (SGOT) 24 U/L (5-34); Albumin 3.9 g/dL (3.5-5.0); Alkaline Phosphatase 69 U/L (40-110); Anion Gap 11 mmol/L (10-20); BUN (Urea Nitrogen) 14 mg/dL (8.9-20.6); Bilirubin, Total 0.5 mg/dL (0.2-1.2); Calc. Creatinine Clearance 0 mL/min (70-130); Calcium 8.7 mg/dL (7.8-10.44); Carbon Dioxide 26 mmol/L (22-29); Chloride 105 mmol/L (98-107); Estimated GFR 59; Globulin 2.9 g/dL (2.4-3.5); Glucose 108 mg/dL (70-105); Protein, Total 6.8 g/dL (6.0-8.3); Sodium 138 mmol/L (136-145)
== END 2021-12-11 09:29 | disposition home or self-care (01) ==
LOC: ERS 06:47 → EEVIPCON 06:47 → ERS 09:29
DX: R51.9 Headache, unspecified (principal); I12.9 Hypertensive chronic kidney disease with stage 1 through stage 4 chronic kidney disease, or unspecified chronic kidney disease; E11.22 Type 2 diabetes mellitus with diabetic chronic kidney disease; N18.9 Chronic kidney disease, unspecified; E78.5 Hyperlipidemia, unspecified; F17.200 Nicotine dependence, unspecified, uncomplicated
CPT/HCPCS: 36415; 70450; 80053; 85025; 93005

== ENCOUNTER 2022-10-21 11:32 | Emergency (ER) | payer BC, OTHER ==
[2022-10-21] MEDS ORDERED: Iopamidol-370 76% 500 ML MDV (1 ML CHARGE) ONE (11:45)
[2022-10-21] MEDS ORDERED: Ketorolac Tromethamine 30 MG/ML VIAL ONE (12:02)
[2022-10-21 12:17] LABS: #Eosinphils 0.1 thou/uL (0.0-0.7); #Monocytes 0.9 thou/uL (0.11-0.59); #Neutrophils 3.2 thou/uL (1.40-6.50); %Basophils 0.5 % (0.0-1.0); %Eosinophils 1.6 % (0.0-10.0); %Lymphocytes 31.7 % (21.0-51.0); %Monocytes 13.8 % (0.0-10.0); %Neutrophils 52.1 % (42.0-75.0); Hematocrit 43.5 % (42.0-52.0); Hemoglobin 13.8 g/dL (14.0-18.0); Mean Corpuscular HGB CONC 31.7 g/dL (32.0-36.0); Mean Corpuscular Hemoglobin 27.3 pg (27.0-31.0); Mean Corpuscular Volume 86.1 fl (78.0-98.0); Mean Platelet Volume 9.2 fL (7.4-10.4); Platelet Count 411 10x3/uL (130-400); RBC Distribution Width 13.4 % (11.5-14.5); Red Blood Cell (RBC) Count 5.05 mill/uL (4.70-6.10); White Blood Cell (WBC) Count 6.2 10x3/uL (4.8-10.8)
[2022-10-21 12:38] LABS: ALT (SGPT) 16 U/L (8-55); AST (SGOT) 20 U/L (5-34); Albumin 3.9 g/dL (3.5-5.0); Alkaline Phosphatase 76 U/L (40-110); Anion Gap 10 mmol/L (10-20); BUN (Urea Nitrogen) 22 mg/dL (8.9-20.6); Bilirubin, Total 0.4 mg/dL (0.2-1.2); Calc. Creatinine Clearance 0 mL/min (70-130); Calcium 9.4 mg/dL (7.8-10.44); Carbon Dioxide 24 mmol/L (22-29); Chloride 106 mmol/L (98-107); Estimated GFR 67; Globulin 3.6 g/dL (2.4-3.5); Glucose 95 mg/dL (70-105); Lipase 31 U/L (8-78); Protein, Total 7.5 g/dL (6.0-8.3); Sodium 136 mmol/L (136-145)
[2022-10-21 12:39] LABS: Troponin I Less than 0.010 ng/mL (< 0.028)
[2022-10-21] MEDS ORDERED: LORazepam 2 MG/ML SYR.(CARPUJECT) ONE (12:55)
[2022-10-21] MEDS ORDERED: Dexamethasone 10 MG/ML VIAL ONE (15:07)
== END 2022-10-21 15:05 | disposition home or self-care (01) ==
LOC: ERS 11:32
DX: J02.9 Acute pharyngitis, unspecified (principal); R07.9 Chest pain, unspecified; E11.9 Type 2 diabetes mellitus without complications; E78.5 Hyperlipidemia, unspecified; I10 Essential (primary) hypertension; Z79.82 Long term (current) use of aspirin; Z79.899 Other long term (current) drug therapy
CPT/HCPCS: 36415; 71045; 71275; 80053; 83690; 84484; 85025; 85379; 93005; 96361; 96372; 96374; 96375; J1100; J1885; J2060; Q9967

== ENCOUNTER 2023-01-01 15:32 | Emergency (ER) | payer BC, OTHER ==
[2023-01-01] MEDS ORDERED: Acetaminophen 500 MG TAB ONE (15:51)
[2023-01-01] MEDS ORDERED: levETIRAcetam 500 MG TAB ONE (15:51)
[2023-01-01] MEDS ORDERED: Labetalol HCl 100 MG TAB PO SCH (16:15)
== END 2023-01-01 17:19 ==
LOC: ERS 15:32
DX: I10 Essential (primary) hypertension (principal); E11.9 Type 2 diabetes mellitus without complications
CPT/HCPCS: 93005

== ENCOUNTER 2023-01-01 21:57 | Emergency (ER) | payer BC, OTHER ==
[2023-01-01 23:36] LABS: #Eosinphils 0.1 thou/uL (0.0-0.7); #Monocytes 0.8 thou/uL (0.11-0.59); #Neutrophils 4.3 thou/uL (1.40-6.50); %Basophils 0.4 % (0.0-1.0); %Eosinophils 0.9 % (0.0-10.0); %Monocytes 10.4 % (0.0-10.0); Hematocrit 51.8 % (42.0-52.0); Hemoglobin 16.1 g/dL (14.0-18.0); Mean Corpuscular HGB CONC 31.1 g/dL (32.0-36.0); Mean Corpuscular Hemoglobin 27.4 pg (27.0-31.0); Mean Corpuscular Volume 88.2 fl (78.0-98.0); Mean Platelet Volume 9.2 fL (7.4-10.4); Platelet Count 279 10x3/uL (130-400); RBC Distribution Width 13.6 % (11.5-14.5); Red Blood Cell (RBC) Count 5.87 mill/uL (4.70-6.10); White Blood Cell (WBC) Count 7.7 10x3/uL (4.8-10.8)
[2023-01-02 00:02] LABS: ALT (SGPT) 18 U/L (8-55); AST (SGOT) 27 U/L (5-34); Albumin 4.4 g/dL (3.5-5.0); Alkaline Phosphatase 75 U/L (40-110); Anion Gap 12 mmol/L (10-20); BUN (Urea Nitrogen) 18 mg/dL (8.9-20.6); Bilirubin, Total 0.6 mg/dL (0.2-1.2); Calc. Creatinine Clearance 0 mL/min (70-130); Calcium 9.4 mg/dL (7.8-10.44); Carbon Dioxide 23 mmol/L (22-29); Chloride 106 mmol/L (98-107); Estimated GFR 54; Globulin 3.3 g/dL (2.4-3.5); Glucose 119 mg/dL (70-105); Potassium 4.1 mmol/L (3.5-5.1); Protein, Total 7.7 g/dL (6.0-8.3); Sodium 137 mmol/L (136-145)
== END 2023-01-02 00:30 ==
LOC: ERS 21:57
DX: Z00.00 Encounter for general adult medical examination without abnormal findings (principal); E11.9 Type 2 diabetes mellitus without complications; I10 Essential (primary) hypertension
CPT/HCPCS: 36415; 36416; 70450; 80053; 80177; 83605; 84146; 85025; 93005; 96372; 99284; J2060

== ENCOUNTER 2023-01-05 19:25 | Emergency (ER) | payer BC, OTHER ==
[2023-01-05 19:45] LABS: #Eosinphils 0.1 thou/uL (0.0-0.7); #Monocytes 0.7 thou/uL (0.11-0.59); #Neutrophils 2.9 thou/uL (1.40-6.50); %Basophils 0.5 % (0.0-1.0); %Eosinophils 1.2 % (0.0-10.0); %Lymphocytes 38.7 % (21.0-51.0); %Monocytes 11.6 % (0.0-10.0); %Neutrophils 47.8 % (42.0-75.0); Hematocrit 46.7 % (42.0-52.0); Hemoglobin 14.8 g/dL (14.0-18.0); Mean Corpuscular HGB CONC 31.7 g/dL (32.0-36.0); Mean Corpuscular Hemoglobin 27.8 pg (27.0-31.0); Mean Corpuscular Volume 87.6 fl (78.0-98.0); Mean Platelet Volume 10.2 fL (7.4-10.4); Platelet Count 226 10x3/uL (130-400); RBC Distribution Width 13.1 % (11.5-14.5); Red Blood Cell (RBC) Count 5.33 mill/uL (4.70-6.10)
[2023-01-05 20:07] LABS: ALT (SGPT) 20 U/L (8-55); AST (SGOT) 32 U/L (5-34); Alkaline Phosphatase 72 U/L (40-110); Anion Gap 16 mmol/L (10-20); BUN (Urea Nitrogen) 12 mg/dL (8.9-20.6); Bilirubin, Total 0.5 mg/dL (0.2-1.2); CK (CPK) 852 U/L (30-200); Calc. Creatinine Clearance 0 mL/min (70-130); Calcium 9.5 mg/dL (7.8-10.44); Carbon Dioxide 23 mmol/L (22-29); Chloride 104 mmol/L (98-107); Estimated GFR 64; Globulin 3.4 g/dL (2.4-3.5); Glucose 122 mg/dL (70-105); Potassium 4.2 mmol/L (3.5-5.1); Protein, Total 7.4 g/dL (6.0-8.3); Sodium 139 mmol/L (136-145)
[2023-01-05 20:39] LABS: Troponin I Less than 0.010 ng/mL (< 0.028)
[2023-01-05 21:06] LABS: Lipase 43 U/L (8-78); Magnesium 1.8 mg/dL (1.6-2.6)
[2023-01-05] MEDS ORDERED: Diazepam 10 MG/2 ML SYRINGE ONE (21:22)
[2023-01-05 23:37] LABS: Bacteria/HPF None Seen HPF (None Seen); Bilirubin Negative (Negative); Blood, Urine Negative (Negative); CAUTI Indications for Culture Alt mental st,lethar; Clarity Clear (Clear); Glucose, Urine (Dipstick) 150 mg/dL (Negative); Ketone, Urine Negative (Negative); Leukocyte Negative Leu/uL (Negative); Nitrite Negative (Negative); Protein, Urine (Dipstick) Negative (Neg-Trace); RBC/HPF 0-3 HPF (0-3); Specific Gravity, Urine 1.022 (1.002-1.036); Squamous Epithelial None Seen HPF (0-3); Urobilinogen Normal mg/dL (Less than 2); WBC/HPF 0-3 HPF (0-3)
[2023-01-05 23:38] LABS: Urine Culture Reflex No No
== END 2023-01-05 23:59 ==
LOC: ERS 19:25
DX: R20.2 Paresthesia of skin (principal); E86.0 Dehydration; E11.9 Type 2 diabetes mellitus without complications
CPT/HCPCS: 36415; 36416; 70450; 71045; 80053; 81001; 82550; 83690; 83735; 84484; 85025; 93005; 96361; 96374; J3360

== ENCOUNTER 2023-01-12 18:16 | Emergency (ER) | payer BC, OTHER ==
[~2023-01-12 18:16] MED LIST changes: -ISOVUE-370 76%-LOCM 1 ML ONE; +Iopamidol-370 76% 500 ML MDV (1 ML CHARGE) ONE
[2023-01-12] MEDS ORDERED: Ketorolac Tromethamine 30 MG/ML VIAL ONE (18:59)
[2023-01-12 19:03] LABS: #Eosinphils 0.1 thou/uL (0.0-0.7); #Monocytes 0.7 thou/uL (0.11-0.59); #Neutrophils 3.2 thou/uL (1.40-6.50); %Basophils 0.6 % (0.0-1.0); %Eosinophils 0.8 % (0.0-10.0); %Lymphocytes 37.2 % (21.0-51.0); %Monocytes 11.4 % (0.0-10.0); %Neutrophils 49.8 % (42.0-75.0); Hematocrit 40.9 % (42.0-52.0); Hemoglobin 13.4 g/dL (14.0-18.0); Mean Corpuscular HGB CONC 32.8 g/dL (32.0-36.0); Mean Corpuscular Hemoglobin 27.6 pg (27.0-31.0); Mean Corpuscular Volume 84.3 fl (78.0-98.0); Mean Platelet Volume 10.2 fL (7.4-10.4); Platelet Count 247 10x3/uL (130-400); RBC Distribution Width 13.2 % (11.5-14.5); Red Blood Cell (RBC) Count 4.85 mill/uL (4.70-6.10); White Blood Cell (WBC) Count 6.5 10x3/uL (4.8-10.8)
[2023-01-12 19:17] LABS: Acetaminophen Less than 10 mcg/mL (10.0-30.0); Alcohol Less than 10.0 mg/dL (Less than 10); Magnesium 1.7 mg/dL (1.6-2.6); Salicylate Less than 8.0 mg/dL (15.0-30.0)
[2023-01-12 19:19] LABS: ALT (SGPT) 15 U/L (8-55); AST (SGOT) 23 U/L (5-34); Albumin 3.6 g/dL (3.5-5.0); Alkaline Phosphatase 59 U/L (40-110); Anion Gap 14 mmol/L (10-20); BUN (Urea Nitrogen) 11 mg/dL (8.9-20.6); Bilirubin, Total 0.3 mg/dL (0.2-1.2); CK (CPK) 383 U/L (30-200); Calc. Creatinine Clearance 0 mL/min (70-130); Calcium 8.9 mg/dL (7.8-10.44); Carbon Dioxide 24 mmol/L (22-29); Chloride 102 mmol/L (98-107); Estimated GFR 66; Glucose 158 mg/dL (70-105); Protein, Total 6.6 g/dL (6.0-8.3); Sodium 136 mmol/L (136-145)
[2023-01-12 19:27] LABS: Prothrombin Time 13.9 sec (12.0-14.7)
[2023-01-12 19:28] LABS: PTT 29.6 sec (22.9-36.1)
[2023-01-12 19:31] LABS: Troponin I Less than 0.010 ng/mL (< 0.028)
== END 2023-01-12 20:13 ==
LOC: ERS 18:16
DX: F43.0 Acute stress reaction (principal); E11.9 Type 2 diabetes mellitus without complications; I10 Essential (primary) hypertension
CPT/HCPCS: 36415; 36416; 70450; 70496; 70498; 71045; 80053; 80307; 82550; 83605; 83735; 84146; 84484; 85025; 85610; 85730; 93005; 96361; 96374; J1885; Q9967

== ENCOUNTER 2023-03-31 13:48 | Emergency (ER) | payer BC, OTHER ==
[2023-03-31 15:31] LABS: #Eosinphils 0.1 thou/uL (0.0-0.7); #Monocytes 0.8 thou/uL (0.11-0.59); #Neutrophils 2.6 thou/uL (1.40-6.50); %Basophils 0.6 % (0.0-1.0); %Eosinophils 1.6 % (0.0-10.0); %Lymphocytes 43.7 % (21.0-51.0); %Monocytes 12.9 % (0.0-10.0); Hemoglobin 14.6 g/dL (14.0-18.0); Mean Corpuscular HGB CONC 31.1 g/dL (32.0-36.0); Mean Corpuscular Hemoglobin 28.2 pg (27.0-31.0); Mean Corpuscular Volume 90.7 fl (78.0-98.0); Mean Platelet Volume 9.8 fL (7.4-10.4); Platelet Count 232 10x3/uL (130-400); RBC Distribution Width 13.6 % (11.5-14.5); Red Blood Cell (RBC) Count 5.18 mill/uL (4.70-6.10); White Blood Cell (WBC) Count 6.3 10x3/uL (4.8-10.8)
[2023-03-31 15:57] LABS: Troponin I Less than 0.010 ng/mL (< 0.028)
[2023-03-31 17:47] LABS: ALT (SGPT) 21 U/L (8-55); AST (SGOT) 31 U/L (5-34); Albumin 4.3 g/dL (3.5-5.0); Alkaline Phosphatase 61 U/L (40-110); Anion Gap 11 mmol/L (10-20); BUN (Urea Nitrogen) 18 mg/dL (8.9-20.6); Bilirubin, Total 0.6 mg/dL (0.2-1.2); Calc. Creatinine Clearance 0 mL/min (70-130); Calcium 9.3 mg/dL (7.8-10.44); Carbon Dioxide 24 mmol/L (22-29); Chloride 105 mmol/L (98-107); Estimated GFR 69; Globulin 3.4 g/dL (2.4-3.5); Glucose 91 mg/dL (70-105); Potassium 4.1 mmol/L (3.5-5.1); Protein, Total 7.7 g/dL (6.0-8.3); Sodium 136 mmol/L (136-145)
[2023-03-31] MEDS ORDERED: Furosemide 40 MG TAB ONE (18:16)
== END 2023-03-31 18:46 ==
LOC: EEVIPCON 13:48 → ERS 13:48
DX: R07.9 Chest pain, unspecified (principal); R60.9 Edema, unspecified; I10 Essential (primary) hypertension; E11.9 Type 2 diabetes mellitus without complications
CPT/HCPCS: 36416; 71045; 80053; 83880; 84484; 85025; 93005